=== PATIENT | female | born 1945 | race Caucasian/White ===

== ENCOUNTER 2021-01-31 17:18 | Inpatient (IN) ==
[2021-01-31 17:57] LABS: Appearance Urine Clear (Clear); Bacteria Urine Automated 2+ (Negative); Bilirubin Urine Negative (Negative); Blood Urine Negative (Negative); Cast Urine Automated 0 /lpf (0-5); Color Urine Yellow; Glucose Urine UA Negative (Negative); Ketones Urine Negative (Negative); Leukocyte Esterase Urine 2+ (Negative); Nitrite Urine Negative (Negative); Protein Urine Negative (Negative); RBC Urine Automated 0-4 /hpf (0-4); Specific Gravity Urine 1.006 (1.000-1.030); Urobilinogen Urine Negative (Negative); pH Urine 6.5 (4.5-7.5)
--- NOTE | 2021-01-31 18:05 | XRay Report ---
XR chest 1V portable HISTORY: Shortness of breath. COMPARISON: Chest CT 01/03/2021. FINDINGS: Chronic reticulonodular interstitial thickening is again noted. There are trace bilateral p leural effusions. The interstitial thickening has slightly progressed and may represent mild congesti ve change. A few bibasilar linear densities favor subsegmental atelectasis. The heart is top normal i n size. No pneumothorax. IMPRESSION: Slight progression of interstitial thickening with trace bilateral pleural effusions. This may repres ent mild congestive change. ACT 112: Negative or not required by law. Electronically signed by: Giancarlo Rico M.D. 01/31/2021 6:03 PM
[2021-01-31 18:53] LABS: Basophils # (auto) 0.02 K/uL (0-0.2); Basophils % (auto) 0.4 %; Eosinophils # (auto) 0.01 K/uL (0-0.5); Eosinophils % (auto) 0.2 %; Hemoglobin 14.7 g/dL (12.0-16.0); Immature Granulocytes # (auto) 0.02 K/uL (0.00-0.02); Immature Granulocytes % (auto) 0.4 %; Lymphocytes # (auto) 0.87 K/uL (1.2-3.4); Lymphocytes % (auto) 19.2 %; Mean Corpuscular Hemoglobin 31.1 pg (25-34); Mean Corpuscular Hgb Conc 33.4 g/dL (32-36); Mean Corpuscular Volume 93.2 fL (80-100); Mean Platelet Volume 9.8 fL (7.4-10.4); Monocytes # (auto) 0.67 K/uL (0.11-0.59); Monocytes % (auto) 14.8 %; Neutrophils # (auto) 2.94 K/uL (1.4-6.5); Platelet Count 161 K/uL (130-400); RDW Coefficient of Variation 13.5 % (11.5-14.5); RDW Standard Deviation 46.5 fL (36.4-46.3); Red Blood Count 4.72 M/uL (4.2-5.4); White Blood Count 4.53 K/uL (4.8-10.8)
[2021-01-31 19:04] LABS: Partial Thromboplastin Ratio 1.1; Partial Thromboplastin Time 29.5 Seconds (21.0-31.0); Prothrombin Time 10.2 Seconds (9.0-12.0)
[2021-01-31 19:11] LABS: Alanine Aminotransferase 43 U/L (12-78); Aspartate Aminotransferase 44 U/L (15-37); Blood Urea Nitrogen 9 mg/dl (7-18); Calcium 8.9 mg/dl (8.5-10.1); Carbon Dioxide 22 mmol/L (21-32); Chloride 109 mmol/L (98-107); Est GFR (African American) 78.2 ml/min; Est GFR (Non-African American) 67.5 ml/min; Glucose 108 mg/dl (70-99); Magnesium 2.3 mg/dl (1.8-2.4); Potassium 4.1 mmol/L (3.5-5.1); Sodium 139 mmol/L (136-145)
[2021-01-31 19:16] LABS: Albumin Globulin Ratio 0.7 (0.9-2); Alkaline Phosphatase 57 U/L (45-117); Bilirubin,Total 0.8 mg/dl (0.2-1); Globulin 4.3 gm/dl (2.5-4.0); Total Protein 7.3 gm/dl (6.4-8.2); Troponin I < 0.015 ng/ml (0-0.045)
[2021-01-31] MEDS ORDERED: ONDANSETRON INJ 2 MG/ML 2 ML VIAL IV STA (19:26)
--- NOTE | 2021-01-31 19:28 | Emergency Department Note ---
History of Present Illness General Chief complaint: Nausea Stated complaint: NAUSEA, WEAKNESS, COVID EXPOSURE Time Seen by Provider: 01/31/21 19:18 Source: patient History of Present Illness Provider complaint: Malaise, cough and weakness Onset (ago): week(s) Location: chest Severity: moderate Pain Consistency: + constant Maximum Pain Intensity: 0 Quality: + other (Generalized fatigue and a productive cough) Relieved By: + none Associated symptoms: + cough, + fever/chills (Chills no fever), + malaise and + nausea/vomiting (Nausea without vomiting); no chest pain or no shortness of breath This is a 75-year-old female who presents with flulike symptoms for the past w [place]. The patient states that on January 17 she was at a birthday constitution party and had exposure to a family member who had Covid. The patient is not vaccinated for COVID-19. She then developed symptoms about a week later including loss of taste or smell, cough and loose stools. She did not get tested for COVID-19. She presents today because she has now developed generalized malaise and fatigue and nausea. She is not vomiting. She denies fevers but states that she does have chills. She denies any chest pain, shortness of breath, abdominal pain, vomiting or urinary symptoms. Home Medications Medication Instructions Recorded Confirmed Type ascorbic acid (vitamin C) 1,000 mg 1 gm PO DAILY tab 09/14/18 01/31/21 History tablet cholecalciferol (vitamin D3) 125 5,000 units PO DAILY cap 09/14/18 01/31/21 History mcg (5,000 unit) capsule omega-3 fatty acids 1,000 mg 1,000 mg PO DAILY 10/27/18 01/31/21 History capsule (Fish Oil Concentrate) selenium 200 mcg capsule 200 mcg PO DAILY 10/27/18 01/31/21 History zinc acetate 50 mg (zinc) capsule 50 mg PO DAILY 10/27/18 01/31/21 History aspirin 500 mg tablet 500 mg PO DAILY 03/23/19 01/31/21 History albuterol sulfate 90 mcg/actuation 2 puff INHALATION Q6H PRN #8.5 g 02/14/20 01/31/21 Rx aerosol inhaler lisinopril 20 mg tablet 20 mg PO DAILY #90 tab 05/02/20 01/31/21 Rx fluticasone furoate 200 1 inh INHALATION DAILY #60 ea 01/07/21 01/31/21 Rx mcg-vilanterol 25 mcg/dose inhalation powder (Breo Ellipta) furosemide 20 mg tablet (Lasix) 20 mg PO DAILY PRN #30 tab 01/09/21 01/31/21 Rx coQ10 (ubiquinol) 200 mg capsule 200 mg PO DAILY 01/31/21 01/31/21 History cyanocobalamin (vitamin B-12) 1,000 mcg PO DAILY 01/31/21 01/31/21 History 1,000 mcg tablet (Vitamin B-12) doxycycline hyclate 100 mg capsule 100 mg PO DAILY PRN 01/31/21 01/31/21 History vitamin E 800 unit capsule 800 unit PO DAILY 01/31/21 01/31/21 History Allergies Allergy/AdvReac Type Severity Reaction Status Date / Time house dust mite Allergy Mild Sneezing Verified 01/31/21 19:09 mold Allergy Mild Sneezing Verified 01/31/21 19:09 Past Med/Surg History Medical History Abnormal CT scan, chest Chronic dyspnea HTN (hypertension) Impaired fasting glucose Lyme disease Morbid obesity due to excess calories Multiple pulmonary nodules determined by computed tomography of lung Sarcoidosis Squamous cell skin cancer, face Surgical History History of cholecystectomy History of hysterectomy History of ovarian cystectomy [place] teeth extracted Family History Mother Breast cancer Other Cancer Colon cancer Diabetes Heart disease Hypertension Denies family history of Tuberculosis Ovarian cancer Prostate cancer Myocardial infarction Emphysema, unspecified Lung disease Asthma Social History Smoking Status: Never smoker Second Hand Exposure: No; Hx Alcohol Use: No Hx Substance Use: No Preferred Language: Portuguese Visual Impairment: No Limitations Hearing Ability: Normal marital status: Single Current Living Situation: Spouse current occupational status: employed Feels Safe at Home: Yes Dental Care, Regularly: No Physical Activity Frequency: Daily Seatbelt Use: always Review of Systems See HPI for pertinent positives & negatives. and A total of 10 systems reviewed and were otherwise negative Physical Exam Vital Signs Vital Signs - 24 hr 01/31/21 17:33 01/31/21 19:00 01/31/21 19:15 Temperature 35.6 C L Temperature Source Temporal Artery Scan Pulse Rate 100 H 95 H 97 H Pulse Rate [Left] Pulse Rate from SpO2 Sensor 95 H 96 H Pulse Rhythm Pulse Rhythm [Left] Pulse Strength [Left] Respiratory Rate 20 14 24 Respiratory Effort / Characteristics Respiratory Depth Respiratory Pattern Blood Pressure 185/129 H 140/84 Blood Pressure Mean 147 102 Pulse Oximetry 91 92 Oxygen Delivery Method Room Air Room Air Oxygen Flow Rate Sepsis Recent Fever Within 48 Hours No Sepsis New/Unexplained Change in Mental Status No Sepsis Action Taken by Nursing No Action Required 01/31/21 19:22 01/31/21 19:23 01/31/21 19:30 Temperature Temperature Source Pulse Rate 98 H 101 H Pulse Rate [Left] 99 H Pulse Rate from SpO2 Sensor Pulse Rhythm Regular Pulse Rhythm [Left] Regular Pulse Strength [Left] Normal Respiratory Rate 15 15 22 Respiratory Effort / Characteristics Non-Labored Non-Labored Respiratory Depth Normal Respiratory Pattern Regular Blood Pressure Blood Pressure Mean Pulse Oximetry 94 95 94 Oxygen Delivery Method Room Air Room Air Room Air Oxygen Flow Rate Sepsis Recent Fever Within 48 Hours Sepsis New/Unexplained Change in Mental Status Sepsis Action Taken by Nursing 01/31/21 19:45 01/31/21 21:32 01/31/21 21:45 Temperature Temperature Source Pulse Rate 99 H 115 H 102 H Pulse Rate [Left] 116 H Pulse Rate from SpO2 Sensor 99 H 117 H 100 H Pulse Rhythm Pulse Rhythm [Left] Pulse Strength [Left] Respiratory Rate 24 16 25 H Respiratory Effort / Characteristics Labored Respiratory Depth Respiratory Pattern Blood Pressure Blood Pressure Mean Pulse Oximetry 93 83 L 94 Oxygen Delivery Method Room Air Room Air Nasal Cannula Oxygen Flow Rate 3 3 Sepsis Recent Fever Within 48 Hours Sepsis New/Unexplained Change in Mental Status Sepsis Action Taken by Nursing 01/31/21 22:00 01/31/21 22:15 01/31/21 23:45 Temperature Temperature Source Pulse Rate 100 H 102 H 94 H Pulse Rate [Left] Pulse Rate from SpO2 Sensor 98 H 101 H 93 H Pulse Rhythm Pulse Rhythm [Left] Pulse Strength [Left] Respiratory Rate 22 22 25 H Respiratory Effort / Characteristics Respiratory Depth Respiratory Pattern Blood Pressure 165/102 H 180/120 H Blood Pressure Mean 123 140 Pulse Oximetry 94 93 95 Oxygen Delivery Method Nasal Cannula Nasal Cannula Nasal Cannula Oxygen Flow Rate 3 3 3 Sepsis Recent Fever Within 48 Hours Sepsis New/Unexplained Change in Mental Status Sepsis Action Taken by Nursing 02/01/21 00:15 02/01/21 00:30 Temperature Temperature Source Pulse Rate 95 H 94 H Pulse Rate [Left] Pulse Rate from SpO2 Sensor Pulse Rhythm Pulse Rhythm [Left] Pulse Strength [Left] Respiratory Rate 25 H Respiratory Effort / Characteristics Respiratory Depth Respiratory Pattern Blood Pressure 180/119 H Blood Pressure Mean 139 Pulse Oximetry 91 Oxygen Delivery Method Room Air Oxygen Flow Rate Sepsis Recent Fever Within 48 Hours Sepsis New/Unexplained Change in Mental Status Sepsis Action Taken by Nursing Constitutional: Vital signs reviewed. Eyes: Pupils are equal round reactive to light. Conjunctiva are noninjected. ENT: Pharynx is clear without erythema or exudate. Mucous membranes are moist. Neck supple without meningeal signs. Respiratory: Clear to auscultation bilaterally. Breath sounds are equal bilaterally. Cardiovascular: Regular rate and rhythm. No rubs or gallops. GI: Soft, nondistended and nontender. Bowel sounds are present. Musculoskeletal: No peripheral edema. No lower extremity tenderness. Integumentary: No cyanosis. or jaundice. Neurological: The patient is awake and alert. No focal deficits. Psychiatric: Normal affect. Not anxious appearing. Course Administered Medications Discontinued Medications Acetaminophen (Acetaminophen Home Pack 500 Mg Tablet) 1 homepack PO NOW ONE Stop: 01/31/21 21:14 Last Admin: 01/31/21 21:57 Dose: Not Given Documented by: [id number] Dexamethasone Sodium Phosphate (DexamethasonePf 10 Mg/Ml Vial) 6 mg IV NOW ONE Stop: 01/31/21 22:32 Last Admin: 01/31/21 22:58 Dose: 6 mg Documented by: [id number] Ondansetron HCl (Ondansetron Inj 2 Mg/Ml 2 Ml Vial) 4 mg IV NOW STA Stop: 01/31/21 19:27 Last Admin: 01/31/21 19:43 Dose: 4 mg Documented by: [id number] Medical Decision Making Differential Diagnosis COVID-19, multifocal pneumonia, UTI, metabolic derangement, dehydration Medical Records Attestation: I reviewed the patient's medical records. I did perform a limited focused review of portions of the patient's old chart on the electronic medical record. The patient had a telephone visit with her doctor. He recommended Covid testing but she refused at the time. Home Medications Current Medication List: was personally reviewed by me Laboratory Data Attestation: I reviewed the patient's lab results. Result diagrams: 01/31/21 18:35 01/31/21 18:35 Lab Results 01/31/21 01/31/21 01/31/21 Range/Units 17:45 18:35 18:35 WBC 4.53 L (4.8-10.8) K/uL RBC 4.72 (4.2-5.4) M/uL Hgb 14.7 (12.0-16.0) g/dL Hct 44.0 (37-47) % MCV 93.2 (80-100) fL MCH 31.1 (25-34) pg MCHC 33.4 (32-36) g/dL RDW Std Deviation 46.5 H (36.4-46.3) fL RDW Coeff of [place] 13.5 (11.5-14.5) % Plt Count 161 (130-400) K/uL MPV 9.8 (7.4-10.4) fL Immature Gran % (Auto) 0.4 % Neut % (Auto) 65.0 % Lymph % (Auto) 19.2 % [place] % (Auto) 14.8 % Eos % (Auto) 0.2 % Baso % (Auto) 0.4 % Neut # (Auto) 2.94 (1.4-6.5) K/uL Lymph # (Auto) 0.87 L (1.2-3.4) K/uL [place] # (Auto) 0.67 H (0.11-0.59) K/uL Eos # (Auto) 0.01 (0-0.5) K/uL Baso # (Auto) 0.02 (0-0.2) K/uL Immature Gran # (Auto) 0.02 (0.00-0.02) K/uL PT 10.2 (9.0-12.0) Seconds INR 1.0 (0.9-1.1) APTT 29.5 (21.0-31.0) Seconds PTT Ratio 1.1 Sodium (136-145) mmol/L Potassium (3.5-5.1) mmol/L Chloride (98-107) mmol/L Carbon Dioxide (21-32) mmol/L Anion Gap (3-11) BUN (7-18) mg/dl Creatinine (0.6-1.2) mg/dl Est Cr Clr Drug Dosing Est GFR ( Amer) ml/min Est GFR (Non-Af Amer) ml/min BUN/Creatinine Ratio (10-20) Glucose (70-99) mg/dl Calcium (8.5-10.1) mg/dl Magnesium (1.8-2.4) mg/dl Total Bilirubin (0.2-1) mg/dl AST (15-37) U/L ALT (12-78) U/L Alkaline Phosphatase (45-117) U/L Troponin I (0-0.045) ng/ml Total Protein (6.4-8.2) gm/dl Albumin (3.4-5.0) gm/dl Globulin (2.5-4.0) gm/dl Albumin/Globulin Ratio (0.9-2) Urine Color Yellow Urine Appearance Clear (Clear) Urine pH 6.5 (4.5-7.5) Ur Specific [place] 1.006 (1.000-1.030) Urine Protein Negative (Negative) Urine Glucose (UA) Negative (Negative) Urine Ketones Negative (Negative) Urine Blood Negative (Negative) Urine Nitrite Negative (Negative) Urine Bilirubin Negative (Negative) Urine Urobilinogen Negative (Negative) Ur Leukocyte Esterase 2+ H (Negative) Urine WBC (Auto) 10-30 H (0-5) /hpf Urine RBC (Auto) 0-4 (0-4) /hpf U Hyaline Cast (Auto) 0 (0-5) /lpf U Epithel Cells (Auto) 10-20 H (0-5) /lpf Urine Bacteria (Auto) 2+ H (Negative) COVID-19 Eval Order SARS-CoV-2 (PCR) (Negative) 01/31/21 01/31/21 01/31/21 Range/Units 18:35 19:30 19:30 WBC (4.8-10.8) K/uL RBC (4.2-5.4) M/uL Hgb (12.0-16.0) g/dL Hct (37-47) % MCV (80-100) fL MCH (25-34) pg MCHC (32-36) g/dL RDW Std Deviation (36.4-46.3) fL RDW Coeff of [place] (11.5-14.5) % Plt Count (130-400) K/uL MPV (7.4-10.4) fL Immature Gran % (Auto) % Neut % (Auto) % Lymph % (Auto) % [place] % (Auto) % Eos % (Auto) % Baso % (Auto) % Neut # (Auto) (1.4-6.5) K/uL Lymph # (Auto) (1.2-3.4) K/uL [place] # (Auto) (0.11-0.59) K/uL Eos # (Auto) (0-0.5) K/uL Baso # (Auto) (0-0.2) K/uL Immature Gran # (Auto) (0.00-0.02) K/uL PT (9.0-12.0) Seconds INR (0.9-1.1) APTT (21.0-31.0) Seconds PTT Ratio Sodium 139 (136-145) mmol/L Potassium 4.1 (3.5-5.1) mmol/L Chloride 109 H (98-107) mmol/L Carbon Dioxide 22 (21-32) mmol/L Anion Gap 8.0 (3-11) BUN 9 (7-18) mg/dl Creatinine 0.84 (0.6-1.2) mg/dl Est Cr Clr Drug Dosing Not Reportable Est GFR ( Amer) 78.2 ml/min Est GFR (Non-Af Amer) 67.5 ml/min BUN/Creatinine Ratio 11.0 (10-20) Glucose 108 H (70-99) mg/dl Calcium 8.9 (8.5-10.1) mg/dl Magnesium 2.3 (1.8-2.4) mg/dl Total Bilirubin 0.8 (0.2-1) mg/dl AST 44 H (15-37) U/L ALT 43 (12-78) U/L Alkaline Phosphatase 57 (45-117) U/L Troponin I < 0.015 (0-0.045) ng/ml Total Protein 7.3 (6.4-8.2) gm/dl Albumin 3.0 L (3.4-5.0) gm/dl Globulin 4.3 H (2.5-4.0) gm/dl Albumin/Globulin Ratio 0.7 L (0.9-2) Urine Color Urine Appearance (Clear) Urine pH (4.5-7.5) Ur Specific [place] (1.000-1.030) Urine Protein (Negative) Urine Glucose (UA) (Negative) Urine Ketones (Negative) Urine Blood (Negative) Urine Nitrite (Negative) Urine Bilirubin (Negative) Urine Urobilinogen (Negative) Ur Leukocyte Esterase (Negative) Urine WBC (Auto) (0-5) /hpf Urine RBC (Auto) (0-4) /hpf U Hyaline Cast (Auto) (0-5) /lpf U Epithel Cells (Auto) (0-5) /lpf Urine Bacteria (Auto) (Negative) COVID-19 Eval Order Covid19 at [facility] SARS-CoV-2 (PCR) POSITIVE A* (Negative) Imaging Data Radiologist's Impression: Chest X-Ray 01/31/21 17:43 XR chest 1V portable HISTORY: Shortness of breath. COMPARISON: Chest CT 01/03/2021. FINDINGS: Chronic reticulonodular interstitial thickening is again noted. There are trace bilateral pleural effusions. The interstitial thickening has slightly progressed and may represent mild congestive change. A few bibasilar linear densities favor subsegmental atelectasis. The heart is top normal in size. No pneumothorax. IMPRESSION: Slight progression of interstitial thickening with trace bilateral pleural effusions. This may represent mild congestive change. ACT 112: Negative or not required by law. Electronically signed by: Giancarlo Rico M.D. 01/31/2021 6:03 PM ECG Data Attestation: I personally reviewed and interpreted this ECG as follows: Indication: + weakness Rate (beats per minute): 96 Rhythm: + normal sinus ECG [place]: + Left axis deviation ECG ST segments: no ST elevation ECG Findings: no PVCs MDM Narrative I did evaluate the patient as noted above. The patient is presenting with symptoms consistent with COVID-19. She had a known exposure and has not been tested yet despite her symptoms. She is presenting today with increased weaknes s. She was placed in respiratory isolation. IV access was established. I did treat her with Zofran IV. She is not short of breath and her O2 saturation is 95% on room air and so she did not require any oxygen. I did place an order for continuous cardiac monitoring. The monitor showed normal sinus rhythm at around 95 bpm. I did order and personally review the patient's 12-lead EKG as described above. She has no acute ischemic changes. I did order and personally reviewed the images of the patient's chest x-ray as described above. She does have interstitial changes consistent with viral pneumonia. I did order a urine analysis. There is some leukocyte esterase and WBCs as well as bacteria. She denies any urinary symptoms. A culture was sent and is pending. I did order and review the patient's blood work as noted in the electronic medical record. Her white count is 4.53 with lymphopenia. This is consistent with COVID-19. She is not anemic. Electrolytes are unremarkable other than a chloride of 109. Troponin is negative. Covid testing came back positive. The patient's O2 saturations have been in the low to mid 90s. There was no indication to hospitalize her and so I did prepare discharge. Prior to discharge the patient went to the bathroom and when she got back in bed her O2 saturation was 83% on room air and she became very tachypneic. She was placed on supplemental oxygen. I did treat her with Decadron 6 mg IV. She will be hospitalized for further care and evaluation. Impression & Plan Pneumonia due to 2019 novel coronavirus, Lymphopenia, Hypoxemia Discharge Plan Visit Data Chief Complaint: Nausea Stated Complaint: NAUSEA, WEAKNESS, COVID EXPOSURE ED Provider: Carlitos Hanson Discharge Problem: Pneumonia due to 2019 novel coronavirus, Lymphopenia, Hypoxemia Patient Disposition: Being Evaluated by Hospitalist Condition: Good Discharge Instructions Activity Restrictions/Additional Instructions: Suspected or Confirmed COVID-19 Instructions Thank you for visiting the Emergency Department today. Your patience is greatly appreciated. You have been screened by our medical staff who determined that you are safe to go home. We ask you follow these simple instructions to remain as healthy as possible. Please make every effort to protect those around you and to reduce transmission of any infections. Be especially careful when near or around high-risk individuals, which includes the elderly, those with weak immune systems, and anyone with preexisting medical diseases. Smoking may increase your chances of developing more severe disease if you contract Coronavirus. If you do smoke, today is the best day of your life to stop. Stay home except to get medical care. If you develop chest pain, uncontrolled fevers, confusion, difficulty breathing, vomiting, passing out, severe headaches, or worsening of your condition, call the Emergency Department for advice 24 hrs a day at [phone] or return for re-evaluation. People who are mildly to moderately ill with COVID-19 are able to isolate at home during their illness. 1. You should restrict activities outside your home, except for getting medical care. 2. Do not go to work, school, or public areas. 3. Avoid using public transportation, ride-sharing, or taxis. 4. Drink plenty of non-alcoholic fluids. 5. Eat healthy. 6. Continue current medications unless told otherwise by your providers. 7. Use Tylenol (acetaminophen), if not allergic, every six hours for control of aches and fevers. Follow the instructions on the bottle. There are several possible scenarios to your visit: At this point, with community transmission, CONSIDER YOURSELF INFECTIOUS. You should SELF-QUARANTINE FOR 14 DAYS (possibly longer if you continue to have fever). A. You were deemed high risk for COVID-19 and testing was performed. Testing can take several days or more to return. An important point to remember is that testing is not perfect and a NEGATIVE test result is not a guarantee that you are free from infection. Your risk of infection must be taken into account and conveyed to you by your provider. A POSITIVE test will trigger action by the Department of Health to track contacts and locations. You should do the right thing and contact all people you were close with and notify them so we can halt the spread. If you need to seek medical care or come in contact with people, let them know ahead of time by calling or keeping a safe distance in person (greater than 6 feet). B. You were deemed high risk for COVID-19 and testing was not performed. This may result from a lack of testing supplies or your risk was deemed so high that you very likely have contracted the disease and assumed to have contracted the illness. Other factors may be present as well. You should self-quarantine for the 14 days (possibly longer if you continue to have fever) regardless of testing. C. Your risk was very low and you were found to have another cause, Strep throat, RSV, a common cold, or Influenza. These illnesses are extremely common and can mimic the symptoms of COVID-19. In these cases, testing for COVID-19 may be deferred. HOME ISOLATION: ISOLATION IS EXTREMELY IMPORTANT TO STOP THE SPREAD OF THE DISEASE AND PREVENTING OTHERS FROM GETTING SIGNIFICANTLY ILL!!!!! The following information about Home Isolation is from the CDC Website: https://www.cdc.gov/coronavirus/2019-ncov/hcp/sahrvomb-zpdsaso-uoelsj.html PEOPLE: Separate yourself from other people and animals in your home. As much as possible, you should stay in a specific room and away from other people in your home. Also, you should use a separate bathroom, if available. 1. You should wear a face mask when you are around other people (e.g., sharing a room or vehicle) or pets and before you enter a healthcare providers office. If you are not able to wear a face mask (for example, because it causes trouble breathing), then people who live with you should not stay in the same room with you, or they should wear a face mask if they enter your room. 2. Cover your mouth and nose with a tissue when you cough or sneeze. Throw used tissues in a lined trash can. Immediately wash your hands with soap and water for at least 20 seconds or, if soap and water are not available, clean your hands with an alcohol-based hand medical records director that contains at least 60% alcohol. 3. Clean your hands often. Wash your hands often with soap and water for at least 20 seconds, especially after blowing your nose, coughing, or sneezing; going to the bathroom; and before eating or preparing food. If soap and water are not readily available, use an alcohol-based hand medical records director with at least 60% alcohol, covering all surfaces of your hands and rubbing them together until they feel dry. Soap and water are the best option if hands are visibly dirty. Avoid touching your eyes, nose, and mouth with unwashed hands. 4. Avoid sharing personal household items. You should not share dishes, drinking glasses, cups, eating utensils, towels, or bedding with other people or pets in your home. After using these items, they should be washed thoroughly with soap and water. 5. Clean all high-touch surfaces every day. High touch surfaces include counters, tabletops, doorknobs, bathroom fixtures, toilets, phones, keyboards, tablets, and bedside tables. Also, clean any surfaces that may have blood, stool, or body fluids on them. Use a household cleaning spray or wipe, according to the label instructions. Labels contain instructions for safe and effective use of the cleaning product including precautions you should take when applying the product, such as wearing gloves and making sure you have good ventilation during use of the product. ANIMALS: You should restrict contact with pets and other animals while you are sick with COVID-19, just like you would around other people. Although there have not been reports of pets or other animals becoming sick with COVID-19, it is still recommended that people sick with COVID-19 limit contact with animals until more information is known about the virus. When possible, have another member of your household care for your animals while you are sick. If you are sick with COVID-19, avoid contact with your pet, including petting, snuggling, being kissed or licked, and sharing food. If you must care for your pet or be around animals while you are sick, wash your hands before and after you interact with pets and wear a face mask. CALL AHEAD BEFORE VISITING YOUR DOCTOR: Appointments, policies, procedures, and schedules have change significantly since the outbreak of COVID-19. If you have a medical appointment, call the healthcare provider and tell them that you have or may have COVID-19. This will help the healthcare providers office take steps to keep other people from getting infected or exposed. MONITOR YOUR SYMPTOMS: Seek prompt medical attention if your illness is worsening (e.g., difficulty breathing). Before seeking care, call your healthcare provider and tell them that you have, or are being evaluated for, COVID-19. Put on a face mask before you enter the facility. These steps will help the healthcare providers office to keep other people in the office or waiting room from getting infected or exposed. Persons who are placed under active monitoring or facilitated self- monitoring should follow instructions provided by their local health department or occupational health professionals, as appropriate. When working with your local health department check their available hours. If you have a medical emergency and need to call 911, NOTIFY DISPATCH PERSONNEL AND EMS that you have, or are being evaluated for COVID-19!!! If possible, put on a face mask before emergency medical services arrive. Common Symptoms of Coronavirus disease 2019 (COVID-19): The following symptoms may appear 2-14 days after exposure. Fever Dry Cough Shortness of breath (Some patients are also experiencing muscle aches, racing heart beats, nausea, and diarrhea) DISCONTINUING HOME ISOLATION: Patients with confirmed COVID-19 should remain under home isolation precautions until the risk of secondary transmission to others is thought to be low. The decision to discontinue home isolation precautions should be made on a case-by- case basis, in consultation with healthcare providers and state and local health departments. This is an ever changing treatment and containment strategy. Remain calm, be flexible, and stay healthy! Want more information on COVID-19? Please visit the following websites. Center for Disease Control and Prevention. https://www.cdc.gov/coronavirus/2019-ncov/index.html [employer]. https://www.acep.org/by-m edical-focus/infectious-diseases/coronavirus/ Interventions: ED Discharge Assessment Last Done: 01/31/21 21:17 Forms Stand Alone Forms: My [facility], Virtual Emergency Department, Important Visit Information COVID Tier Tier I: No follow up necessary. Covid Fact Sheet / ED Discharge Instructions only Tier II: Self-Monitoring Kit, Temp 2x day/pulse ox q8 hrs. Followup call in 24 hrs. Tier III: Self-Monitoring Kit, Temp 2x day/pulse ox q4 hours, with Home Oxygen, Followup call @ 8 & 24hrs. Telehealth Followup in 48hrs ED COVID Discharge Tier: Tier II: Stable for D/C. Given a Self-Mon Kit. Call Kayli k within 24hrs Prescriptions Prescriptions: No Action albuterol sulfate 90 mcg/actuation HFA aerosol inhaler 2 puff inhalation Q6H PRN (Reason: shortness of breath or wheezing) Qty: 8.5 RF: 1 zinc acetate 50 mg (zinc) capsule 50 mg PO DAILY RF: 0 selenium 200 mcg capsule 200 mcg PO DAILY RF: 0 omega-3 fatty acids [Fish Oil Concentrate] 1,000 mg capsule 1,000 mg PO DAILY RF: 0 furosemide [Lasix] 20 mg tablet 20 mg PO DAILY PRN (Reason: edema) Qty: 30 RF: 1 ascorbic acid (vitamin C) 1,000 mg tablet 1 gm PO DAILY RF: 0 cholecalciferol (vitamin D3) 5,000 unit capsule 5,000 units PO DAILY RF: 0 lisinopril 20 mg tablet 20 mg PO DAILY Qty: 90 RF: 3 Breo Ellipta 200-25 mcg/dose blister with device 1 inh inhalation DAILY Qty: 60 RF: 3 aspirin 500 mg Tablet 500 mg PO DAILY RF: 0 cyanocobalamin (vitamin B-12) [Vitamin B-12] 1,000 mcg Tablet 1,000 mcg PO DAILY RF: 0 vitamin E 800 unit Capsule 800 unit PO DAILY RF: 0 coQ10 (ubiquinol) 200 mg Capsule 200 mg PO DAILY RF: 0 doxycycline hyclate 100 mg capsule 100 mg PO DAILY PRN (Reason: FOR LYMES DISEASE) RF: 0 Referrals Referrals: Nimo Gore MD [Primary Care Provider] -
[2021-01-31] MEDS ORDERED: ACETAMINOPHEN HOME PACK 500 MG TABLET PO ONE (21:13)
[2021-01-31] MEDS ORDERED: dexAMETHasone**PF** 10 MG/ML VIAL IV ONE (22:31)
[2021-02-01] MEDS ORDERED: ALBUTEROL HFA 8 GM INHALER INH PRN (00:37)
--- NOTE | 2021-02-01 00:40 | History & Physical Report ---
Date of Service February 01, 2021 Assessment & Plan (1) Pneumonia due to 2019 novel coronavirus: Plan: Dayana Dodd is a 75-year-old female with past medical history significant for sarcoidosis, hypertension, Lyme's disease; who presents for concerns of increased nausea, inability to tolerate food or drink due to loose stools, and recent COVID-19 exposure. Hypoxia: -Desaturations to 86% while on room air in ED -Responded to 3 L nasal cannula with subsequent ability to wean off oxygen supplementation with no further desaturations while in ED -CXR demonstrating slight progression of interstitial thickening with trace bilateral pleural effusions -No focal findings on examination consistent with heart failure -Patient utilizes Lasix 20 mg as needed for peripheral edema -Consider echocardiogram in a.m. if no continued improvement overnight COVID-19 pneumonia: -CXR demonstrating slight progression of interstitial thickening with trace bilateral pleural effusions -Admit to med/surge for monitoring secondary to COVID-19 -Oxygen as needed maintaining oxygen saturations greater than 90% -Dexamethasone 6 mg IV daily -Given prolonged course (15 days from exposure/development of symptoms) patient not a candidate for remdesivir or antibodies Hypertension: -Continue home regimen of lisinopril 20 mg daily Sarcoidosis: -Patient utilizes DuoNebs and Breo as outpatient -Continue home regimen with transition to hospital formulary while inpatient History of Lyme disease: -At home utilizes doxycycline 100 mg as needed for Lyme related symptoms -Consider retesting for Lyme if additional findings/presentation of new symptoms Diet: Regular CODE STATUS: Full code DVT prophylaxis: Lovenox (2) Sarcoidosis: (3) HTN (hypertension): (4) H/o Lyme disease: (5) Hypoxemia: History of Present Illness Primary Care Provider: Nimo Gore MD Dayana Dodd is a 75-year-old female with past medical history significant for sarcoidosis, hypertension, Lyme's disease; who presents for concerns of increased nausea, inability to tolerate food or drink due to loose stools, and recent COVID-19 exposure. Earlier this month was at a birthday libertarian and sub sequently was notified 2 days later that son was positive for COVID-19, since that time has had slow development of her symptoms. This ultimately culminated in over the last several days being unable to tolerate eating and drinking and any significant quantities, as well as continuing to feel weaker as time passed. Recognizes that this fatigue had been slowly developing over these 2 weeks. While in ED was continuing to do well, but after a short trip/walk to the bathroom she dropped her oxygen saturations to approximately 86%. Requiring nasal cannula oxygen supplementation ordered to push back up. Has no history of oxygen requirement, with only pulmonary history being her sarcoidosis. Currently denies chest pain, shortness of breath, palpitations, changes in vision, headaches, lightheadedness, dizziness, changes in strength, abdominal pain, nausea, vomiting, diarrhea. Allergies Allergy/AdvReac Type Severity Reaction Status Date / Time house dust mite Allergy Mild Sneezing Verified 01/31/21 19:09 mold Allergy Mild Sneezing Verified 01/31/21 19:09 Home Medications Medication Instructions Recorded Confirmed Type ascorbic acid (vitamin C) 1,000 mg 1 gm PO DAILY tab 09/14/18 01/31/21 History tablet cholecalciferol (vitamin D3) 125 5,000 units PO DAILY cap 09/14/18 01/31/21 History mcg (5,000 unit) capsule omega-3 fatty acids 1,000 mg 1,000 mg PO DAILY 10/27/18 01/31/21 History capsule (Fish Oil Concentrate) selenium 200 mcg capsule 200 mcg PO DAILY 10/27/18 01/31/21 History zinc acetate 50 mg (zinc) capsule 50 mg PO DAILY 10/27/18 01/31/21 History aspirin 500 mg tablet 500 mg PO DAILY 03/23/19 01/31/21 History albuterol sulfate 90 mcg/actuation 2 puff INHALATION Q6H PRN #8.5 g 02/14/20 01/31/21 Rx aerosol inhaler lisinopril 20 mg tablet 20 mg PO DAILY #90 tab 05/02/20 01/31/21 Rx fluticasone furoate 200 1 inh INHALATION DAILY #60 ea 01/07/21 01/31/21 Rx mcg-vilanterol 25 mcg/dose inhalation powder (Breo Ellipta) furosemide 20 mg tablet (Lasix) 20 mg PO DAILY PRN #30 tab 01/09/21 01/31/21 Rx coQ10 (ubiquinol) 200 mg capsule 200 mg PO DAILY 01/31/21 01/31/21 History cyanocobalamin (vitamin B-12) 1,000 mcg PO DAILY 01/31/21 01/31/21 History 1,000 mcg tablet (Vitamin B-12) doxycycline hyclate 100 mg capsule 100 mg PO DAILY PRN 01/31/21 01/31/21 History vitamin E 800 unit capsule 800 unit PO DAILY 01/31/21 01/31/21 History Past Med/Surg History Medical History Abnormal CT scan, chest Chronic dyspnea HTN (hypertension) Impaired fasting glucose Lyme disease Morbid obesity due to excess calories Multiple pulmonary nodules determined by computed tomography of lung Sarcoidosis Squamous cell skin cancer, face Surgical History History of cholecystectomy History of hysterectomy History of ovarian cystectomy [place] teeth extracted Family History Mother Breast cancer Other Cancer Colon cancer Diabetes Heart disease Hypertension Denies family history of Tuberculosis Ovarian cancer Prostate cancer Myocardial infarction Emphysema, unspecified Lung disease Asthma Social History Smoking Status: Never smoker Second Hand Exposure: No; Hx Alcohol Use: No Hx Substance Use: No Preferred Language: [place] Communication Ability: Effective Visual Impairment: No Limitations Hearing Ability: Normal Circular Sawyer Stone Required: No Beliefs That Will Affect Care: None marital status: ivorced Current Living Situation: Alone current occupational status: employed How many Children do You have: 1 Feels Safe at Home: Yes Safety Concerns: Feels Safe At This Time Dental Care, Regularly: No Physical Activity Frequency: Daily Seatbelt Use: always Assistive Devices: None Review of Systems Review of Systems: All systems reviewed & are unremarkable except as noted in HPI & below Physical Exam Constitutional: WD/WN, vitals as above Eyes: PERRL, conjunctivae normal, anicteric sclerae Respiratory: normal respiratory effort, lungs clear to auscultation Auscultation: + wheezes (fine whole field); no crackles, no rales and no rhonchi Cardiovascular: Rate/Rhythm: regular rate and regular rhythm Heart Sounds: no gallop, no murmur and no cardiac rub Vessels: normal peripheral pulses; no JVD Extremities: no edema Gastrointestinal (Abdomen): Inspection/Auscultation: normal bowel sounds; abdomen not distended Percussion/Palpation: abdomen soft; abdomen nontender and no guarding Musculoskeletal: no cyanosis or clubbing, extremities motor strength 5/5 Skin: no rashes, warm and dry Neurologic: PERRL, EOMI, accommodation nl, no face palsy, no dysarthria CN's II-XI intact bilaterally and moves all extremities Psychiatric: Orientation: alert and oriented x 3 Results & Data Results & Data ([facility]) Vital Signs (Past 12 Hours) Vital Signs Temp Pulse Pulse Resp BP Pulse Ox 02/01/21 00:30 94 H 25 H 180/119 H 91 02/01/21 00:15 95 H 01/31/21 23:45 94 H 25 H 180/120 H 95 01/31/21 22:15 102 H 22 165/102 H 93 01/31/21 22:00 100 H 22 94 01/31/21 21:45 102 H 25 H 94 01/31/21 21:32 115 H 116 H 16 83 L 01/31/21 19:45 99 H 24 93 01/31/21 19:30 101 H 22 94 01/31/21 19:23 98 H 99 H 15 95 01/31/21 19:22 15 94 01/31/21 19:15 97 H 24 92 01/31/21 19:00 95 H 14 140/84 91 01/31/21 17:33 35.6 C L 100 H 20 185/129 H Laboratory Results 01/31/21 01/31/21 01/31/21 Range/Units 19:30 19:30 18:35 WBC (4.8-10.8) K/uL RBC (4.2-5.4) M/uL Hgb (12.0-16.0) g/dL Hct (37-47) % MCV (80-100) fL MCH (25-34) pg MCHC (32-36) g/dL RDW Std Deviation (36.4-46.3) fL RDW Coeff of Ranulfo (11.5-14.5) % Plt Count (130-400) K/uL MPV (7.4-10.4) fL Immature Gran % (Auto) % Neut % (Auto) % Lymph % (Auto) % [place] % (Auto) % Eos % (Auto) % Baso % (Auto) % Neut # (Auto) (1.4-6.5) K/uL Lymph # (Auto) (1.2-3.4) K/uL [place] # (Auto) (0.11-0.59) K/uL Eos # (Auto) (0-0.5) K/uL Baso # (Auto) (0-0.2) K/uL Immature Gran # (Auto) (0.00-0.02) K/uL PT (9.0-12.0) Seconds INR (0.9-1.1) APTT (21.0-31.0) Seconds PTT Ratio Sodium 139 (136-145) mmol/L Potassium 4.1 (3.5-5.1) mmol/L Chloride 109 H (98-107) mmol/L Carbon Dioxide 22 (21-32) mmol/L Anion Gap 8.0 (3-11) BUN 9 (7-18) mg/dl Creatinine 0.84 (0.6-1.2) mg/dl Est Cr Clr Drug Dosing Not Reportable Est GFR ( Amer) 78.2 ml/min Est GFR (Non-Af Amer) 67.5 ml/min BUN/Creatinine Ratio 11.0 (10-20) Glucose 108 H (70-99) mg/dl Calcium 8.9 (8.5-10.1) mg/dl Magnesium 2.3 (1.8-2.4) mg/dl Total Bilirubin 0.8 (0.2-1) mg/dl AST 44 H (15-37) U/L ALT 43 (12-78) U/L Alkaline Phosphatase 57 (45-117) U/L Troponin I < 0.015 (0-0.045) ng/ml Total Protein 7.3 (6.4-8.2) gm/dl Albumin 3.0 L (3.4-5.0) gm/dl Globulin 4.3 H (2.5-4.0) gm/dl Albumin/Globulin Ratio 0.7 L (0.9-2) Urine Color Urine Appearance (Clear) Urine pH (4.5-7.5) Ur Specific [place] (1.000-1.030) Urine Protein (Negative) Urine Glucose (UA) (Negative) Urine Ketones (Negative) Urine Blood (Negative) Urine Nitrite (Negative) Urine Bilirubin (Negative) Urine Urobilinogen (Negative) Ur Leukocyte Esterase (Negative) Urine WBC (Auto) (0-5) /hpf Urine RBC (Auto) (0-4) /hpf U Hyaline Cast (Auto) (0-5) /lpf U Epithel Cells (Auto) (0-5) /lpf Urine Bacteria (Auto) (Negative) COVID-19 Eval Order Covid19 at [facility] SARS-CoV-2 (PCR) POSITIVE A* (Negative) 01/31/21 01/31/21 01/31/21 Range/Units 18:35 18:35 17:45 WBC 4.53 L (4.8-10.8) K/uL RBC 4.72 (4.2-5.4) M/uL Hgb 14.7 (12.0-16.0) g/dL Hct 44.0 (37-47) % MCV 93.2 (80-100) fL MCH 31.1 (25-34) pg MCHC 33.4 (32-36) g/dL RDW Std Deviation 46.5 H (36.4-46.3) fL RDW Coeff of Ranulfo 13.5 (11.5-14.5) % Plt Count 161 (130-400) K/uL MPV 9.8 (7.4-10.4) fL Immature Gran % (Auto) 0.4 % Neut % (Auto) 65.0 % Lymph % (Auto) 19.2 % [place] % (Auto) 14.8 % Eos % (Auto) 0.2 % Baso % (Auto) 0.4 % Neut # (Auto) 2.94 (1.4-6.5) K/uL Lymph # (Auto) 0.87 L (1.2-3.4) K/uL [place] # (Auto) 0.67 H (0.11-0.59) K/uL Eos # (Auto) 0.01 (0-0.5) K/uL Baso # (Auto) 0.02 (0-0.2) K/uL Immature Gran # (Auto) 0.02 (0.00-0.02) K/uL PT 10.2 (9.0-12.0) Seconds INR 1.0 (0.9-1.1) APTT 29.5 (21.0-31.0) Seconds PTT Ratio 1.1 Sodium (136-145) mmol/L Potassium (3.5-5.1) mmol/L Chloride (98-107) mmol/L Carbon Dioxide (21-32) mmol/L Anion Gap (3-11) BUN (7-18) mg/dl Creatinine (0.6-1.2) mg/dl Est Cr Clr Drug Dosing Est GFR ( Amer) ml/min Est GFR (Non-Af Amer) ml/min BUN/Creatinine Ratio (10-20) Glucose (70-99) mg/dl Calcium (8.5-10.1) mg/dl Magnesium (1.8-2.4) mg/dl Total Bilirubin (0.2-1) mg/dl AST (15-37) U/L ALT (12-78) U/L Alkaline Phosphatase (45-117) U/L Troponin I (0-0.045) ng/ml Total Protein (6.4-8.2) gm/dl Albumin (3.4-5.0) gm/dl Globulin (2.5-4.0) gm/dl Albumin/Globulin Ratio (0.9-2) Urine Color Yellow Urine Appearance Clear (Clear) Urine pH 6.5 (4.5-7.5) Ur Specific [place] 1.006 (1.000-1.030) Urine Protein Negative (Negative) Urine Glucose (UA) Negative (Negative) Urine Ketones Negative (Negative) Urine Blood Negative (Negative) Urine Nitrite Negative (Negative) Urine Bilirubin Negative (Negative) Urine Urobilinogen Negative (Negative) Ur Leukocyte Esterase 2+ H (Negative) Urine WBC (Auto) 10-30 H (0-5) /hpf Urine RBC (Auto) 0-4 (0-4) /hpf U Hyaline Cast (Auto) 0 (0-5) /lpf U Epithel Cells (Auto) 10-20 H (0-5) /lpf Urine Bacteria (Auto) 2+ H (Negative) COVID-19 Eval Order SARS-CoV-2 (PCR) (Negative) Medications Administered Home Medication List Medication Instructions Recorded ascorbic acid (vitamin C) 1,000 mg 1 gm PO DAILY tab 09/14/18 tablet cholecalciferol (vitamin D3) 125 5,000 units PO DAILY cap 09/14/18 mcg (5,000 unit) capsule omega-3 fatty acids 1,000 mg 1,000 mg PO DAILY 10/27/18 capsule (Fish Oil Concentrate) selenium 200 mcg capsule 200 mcg PO DAILY 10/27/18 zinc acetate 50 mg (zinc) capsule 50 mg PO DAILY 10/27/18 aspirin 500 mg tablet 500 mg PO DAILY 03/23/19 albuterol sulfate 90 mcg/actuation 2 puff INHALATION Q6H PRN #8.5 g 02/14/20 aerosol inhaler lisinopril 20 mg tablet 20 mg PO DAILY #90 tab 05/02/20 fluticasone furoate 200 1 inh INHALATION DAILY #60 ea 01/07/21 mcg-vilanterol 25 mcg/dose inhalation powder (Breo Ellipta) furosemide 20 mg tablet (Lasix) 20 mg PO DAILY PRN #30 tab 01/09/21 coQ10 (ubiquinol) 200 mg capsule 200 mg PO DAILY 01/31/21 cyanocobalamin (vitamin B-12) 1,000 mcg PO DAILY 01/31/21 1,000 mcg tablet (Vitamin B-12) doxycycline hyclate 100 mg capsule 100 mg PO DAILY PRN 01/31/21 vitamin E 800 unit capsule 800 unit PO DAILY 01/31/21 Supervising Physician Co-Signing Physician Notes Attending addendum: I have physically seen this patient, have supervised the medical residents activities, and agree with the H&P unless as otherwise noted. Assessment and Plan: COVID-19 pneumonia with hypoxia- Dexamethasone 6 mg IV every morning Did not qualify for remdesivir due to 15-day prodrome Azithromycin 500 mg IV daily Vitamin D 1000 international units p.o. daily Zinc sulfate 25 mg p.o. daily Duonebs every 4 hours while awake and every 2 hours when necessary. Nasal cannula oxygen titrate to keep pulse ox around 92 to 94% Sarcoidosis- May be contributing factor DuoNebs and dexamethasone IV as noted above Remaining orders and notations as noted Resident Activity Tracking Resident Involvement: Resident Care Provided Care Provided: Adult Hospital Medicine
[2021-02-01] MEDS ORDERED: MAGNESIUM HYDROXIDE SUSP 30 ML UDC PO PRN (01:43)
[2021-02-01] MEDS ORDERED: POLYETHYLENE (MIRALAX) 17 GM PACK PO PRN (01:43)
[2021-02-01] MEDS ORDERED: ONDANSETRON INJ 2 MG/ML 2 ML VIAL IV PRN (01:43)
[2021-02-01] MEDS ORDERED: ALUMINUM/MAGNESIUM SUSP 30 ML UDC PO PRN (01:43)
[2021-02-01] MEDS ORDERED: ACETAMINOPHEN 325 MG TAB PO PRN (01:43)
[2021-02-01] MEDS ORDERED: FUROSEMIDE 20 MG TAB PO PRN (01:43)
[2021-02-01] MEDS: ENOXAPARIN INJ 40 MG/0.4 ML SYR SQ SCH ×2 (06:06→18:27)
[2021-02-01] MEDS: FLUTICASONE/VILANTEROL 200/25MCG 14 PUFFS/INHALER INH SCH (08:18)
[2021-02-01] MEDS: dexAMETHasone 6 MG in SYRINGE 0 ML IV SCH (08:18)
[2021-02-01] MEDS: lisinopril 20 MG TAB PO SCH (08:19)
--- NOTE | 2021-02-01 09:14 | Hospitalist Progress Note ---
Date of Service February 01, 2021 Assessment & Plan (1) Pneumonia due to 2019 novel coronavirus: Plan: Dayana Dodd is a 75-year-old female with past medical history significant for sarcoidosis, hypertension, Lyme's disease; who presents for concerns of increased nausea, inability to tolerate food or drink due to loose stools, and recent COVID-19 exposure. Hypoxia: acute respiratory failure with hypoxia secondary to covid pneumonia -Desaturations to 86% while on room air in ED -Responded to 3 L nasal cannula with subsequent ability to wean off oxygen supplementation with no further desaturations while in ED -CXR demonstrating slight progression of interstitial thickening with trace bilateral pleural effusions - COVID-19 pneumonia: -CXR demonstrating slight progression of interstitial thickening with trace bilateral pleural effusions -airborne isolation -Oxygen to maintian oxygen saturations greater than 90% -Dexamethasone 6 mg IV daily -Given prolonged course (15 days from exposure/development of symptoms) patient not a candidate for remdesivir Hypertension: -Continue home regimen of lisinopril 20 mg daily Sarcoidosis: -Patient utilizes DuoNebs and Breo as outpatient -Continue home regimen with transition to hospital formulary while inpatient History of Lyme disease: -At home utilizes doxycycline 100 mg as needed for Lyme related symptoms -Consider retesting for Lyme if additional findings/presentation of new symptoms Diet: Regular CODE STATUS: Full code DVT prophylaxis: Lovenox (2) Sarcoidosis: (3) HTN (hypertension): (4) H/o Lyme disease: (5) Hypoxemia: Admission and Anticipated Discharge Date Admission Date: February 01, 2021 Subjective Patient still with mild dyspneawith exertion no other physical complaints or problems. Does feel she knows she is exposed to Covid around a family member who tested positive from a tenriism function Review of Systems Review of Systems: Moderate distress and fatigue no headache, no visual changes no speech or swallowing issues no chest pain, pressure or palpitations Exertional shortness of breath, nonproductive cough no wheezes no abdominal pain, nausea or vomiting, diarrhea or constipation no dysuria, hematuria or frequency no focal joint pain or swelling no back pain, CVA tenderness or radicular pain no bruising, bleeding or rashes no focal signs of weakness or numbness or altered sensation no complaints of anxiety or depression.. Physical Exam Physical Exam: The patient appeared well nourished and normally developed. Vital signs as documented. Head exam is normocephalic atraumatic Neck is without JVD, thyromegaly, or carotid bruits. Lungs are clear to auscultation, no focal loss of breath sounds Cardiac exam, Rhythm is regular.. No murmurs, rubs or gallops. Abdominal exam reveals normal bowel sounds, soft non tender, no masses Extremities are nonedematous and both pedal pulses are present Neurologic exam is alert and oriented, no focal loss of strength or sensation Skin is without bruises or rashes Psychologically is without concerns for anxiety or depression Results & Data Results & Data ([facility]) Vital Signs (Past 12 Hours) Vital Signs Temp Pulse Pulse Resp BP BP BP 02/01/21 08:17 75 149/95 H 02/01/21 06:08 97.5 F L 86 18 154/100 H 02/01/21 02:24 157/100 H 02/01/21 01:43 99.0 F 98 H 20 167/114 H 02/01/21 01:24 02/01/21 01:15 98 H 174/109 H 02/01/21 00:45 98 H 02/01/21 00:30 94 H 25 H 180/119 H 02/01/21 00:15 95 H 01/31/21 23:45 94 H 25 H 180/120 H 01/31/21 22:15 102 H 22 165/102 H 01/31/21 22:00 100 H 22 01/31/21 21:45 102 H 25 H 01/31/21 21:32 115 H 116 H 16 Pulse Ox 02/01/21 08:17 02/01/21 06:08 92 02/01/21 02:24 02/01/21 01:43 93 02/01/21 01:24 94 02/01/21 01:15 86 L 02/01/21 00:45 90 02/01/21 00:30 91 02/01/21 00:15 01/31/21 23:45 95 01/31/21 22:15 93 01/31/21 22:00 94 01/31/21 21:45 94 01/31/21 21:32 83 L PG Care Time/CCT Total # of Minutes Spent Total Time Spent with Patient: Total time spent is greater than 50% in coordination of care (as documented) at patient's floor/unit and/or counseling patient: Coding Level of Care Code 48983 Subseq Hosp Care Lvl 2 Diagnoses Pneumonia due to 2019 novel coronavirus U07.1; J12.82 Sarcoidosis D86.9 HTN (hypertension) I10 H/o Lyme disease Z86.19 Hypoxemia R09.02
[2021-02-01 09:35] LABS: Basophils # (auto) 0.01 K/uL (0-0.2); Basophils % (auto) 0.3 %; Hematocrit (blood only) 42.5 % (37-47); Immature Granulocytes # (auto) 0.02 K/uL (0.00-0.02); Immature Granulocytes % (auto) 0.7 %; Lymphocytes # (auto) 0.25 K/uL (1.2-3.4); Lymphocytes % (auto) 8.5 %; Mean Corpuscular Hemoglobin 30.9 pg (25-34); Mean Corpuscular Hgb Conc 32.9 g/dL (32-36); Mean Corpuscular Volume 93.8 fL (80-100); Mean Platelet Volume 10.2 fL (7.4-10.4); Monocytes # (auto) 0.35 K/uL (0.11-0.59); Monocytes % (auto) 11.9 %; Neutrophils # (auto) 2.31 K/uL (1.4-6.5); Neutrophils % (auto) 78.6 %; Platelet Count 164 K/uL (130-400); RDW Coefficient of Variation 13.6 % (11.5-14.5); Red Blood Count 4.53 M/uL (4.2-5.4); White Blood Count 2.94 K/uL (4.8-10.8)
[2021-02-01 09:55] LABS: BUN Creatinine Ratio 13.7 (10-20); Calcium 9.1 mg/dl (8.5-10.1); Creatinine Clr Calc Pharmacy 81.6 ml/min; Est GFR (African American) 94.3 ml/min; Est GFR (Non-African American) 81.3 ml/min; Potassium 5.1 mmol/L (3.5-5.1)
--- NOTE | 2021-02-01 10:28 | Electrocardiogram Report ---
Test Reason : Blood Pressure : / mmHG Vent. Rate : 096 BPM Atrial Rate : 096 BPM P-R Int : 196 ms QRS Dur : 090 ms QT Int : 354 ms P-R-T Axes : 039 -39 017 degrees QTc Int : 447 ms Normal sinus rhythm Left anterior fascicular block Abnormal ECG When compared with ECG of 23-MAR-2019 15:01, No significant change was found Confirmed by Vishal Juarez ([id number]) on 02/01/2021 10:28:26 AM Referred By: REFERRED SELF Confirmed By:Vishal Juarez
--- NOTE | 2021-02-01 20:14 | Billing Data ---
Date of Service February 01, 2021 Coding Level of Care Code 01144 Initial Inpt Care Lvl 3
[2021-02-02] MEDS: ENOXAPARIN INJ 40 MG/0.4 ML SYR SQ SCH ×2 (06:24→18:38)
[2021-02-02] MEDS: lisinopril 20 MG TAB PO SCH (08:16)
[2021-02-02] MEDS: FLUTICASONE/VILANTEROL 200/25MCG 14 PUFFS/INHALER INH SCH (08:17)
[2021-02-02] MEDS: dexAMETHasone 6 MG in SYRINGE 0 ML IV SCH (08:18)
--- NOTE | 2021-02-02 11:06 | XRay Report ---
XR chest 1V portable CLINICAL HISTORY: eval covid COMPARISON STUDY: Chest CT January 03, 2021. Chest radiograph January 31, 2021. FINDINGS: Cardiac mediastinal silhouette is stable. Calcified mediastinal and bilateral hilar lymph n odes are noted as well as calcified granulomas within the lungs. There is no pneumothorax. There are trace bilateral pleural effusions. Multifocal bilateral airspace opacities have progressed. IMPRESSION: Progression of multifocal bilateral airspace opacities which favor an infectious process superimposed upon a chronic granulomatous process. ACT 112: Negative or not required by law. Electronically signed by: Shen Gore M.D. 02/02/2021 11:05 AM
[2021-02-02] MEDS ORDERED: FUROSEMIDE 20 MG in SYRINGE 0 ML IV ONE (11:15)
--- NOTE | 2021-02-02 14:18 | Hospitalist Progress Note ---
Date of Service February 02, 2021 Assessment & Plan (1) Pneumonia due to 2019 novel coronavirus: Plan: Dayana Dodd is a 75-year-old female with past medical history significant for sarcoidosis, hypertension, Lyme's disease; who presents for concerns of increased nausea, inability to tolerate food or drink due to loose stools, and recent COVID-19 exposure. Hypoxia: -Desaturations to 86% while on room air in ED now requiring significant oxygen with ambulation. -CXR repeat shows progression of multifocal bilateral airspace opacities COVID-19 pneumonia: -CXR demonstrating slight progression of interstitial thickening with trace bilateral pleural effusions -Admit to med/surge for monitoring secondary to COVID-19 -Oxygen as needed maintaining oxygen saturations greater than 90% -We'll try dose of Solu-Medrol overnight to see if improves her oxygen require ment -Given prolonged course (15 days from exposure/development of symptoms) patient not a candidate for remdesivir or baricitinib Hypertension: -Continue home regimen of lisinopril 20 mg daily Sarcoidosis: -Patient utilizes DuoNebs and Breo as outpatient -Continue home regimen with transition to hospital formulary while inpatient History of Lyme disease: -At home utilizes doxycycline 100 mg as needed for Lyme related symptoms -Consider retesting for Lyme if additional findings/presentation of new symptoms Diet: Regular CODE STATUS: Full code DVT prophylaxis: Lovenox (2) Sarcoidosis: (3) HTN (hypertension): (4) H/o Lyme disease: (5) Hypoxemia: (6) Bacteria in urine: Plan: Patient is asymptomatic bacteria in urine will not treat unless patient becomes symptomatic this is a pansensitive E. coli Admission and Anticipated Discharge Date Admission Date: February 01, 2021 Subjective Patient had a two-step oxygen requirement test and with ambulation she had tachycardia to 150 and required 6 L nasal cannula. Certainly her oxygen need is impacted by her underlying COPD however her last pulmonary function test which was within the last year only had around 79% predicted so wasn't severe COPD. We'll continue supportive care for her Covid will increase steroids a bit to try to cover also underlying COPD give her some diuresis. Chest x-ray did not show any improvement or worsening Review of Systems Review of Systems: Moderate distress and fatigue no headache, no visual changes no speech or swallowing issues no chest pain, pressure or palpitations Exertional shortness of breath, nonproductive cough no wheezes no abdominal pain, nausea or vomiting, diarrhea or constipation no dysuria, hematuria or frequency no focal joint pain or swelling no back pain, CVA tenderness or radicular pain no bruising, bleeding or rashes no focal signs of weakness or numbness or altered sensation no complaints of anxiety or depression.. Physical Exam Physical Exam: The patient appeared well nourished and normally developed. Vital signs as documented. Head exam is normocephalic atraumatic Neck is without JVD, thyromegaly, or carotid bruits. Lungs are clear to auscultation, no focal loss of breath sounds Cardiac exam, Rhythm is regular.. No murmurs, rubs or gallops. Abdominal exam reveals normal bowel sounds, soft non tender, no masses Extremities are nonedematous and both pedal pulses are present Neurologic exam is alert and oriented, no focal loss of strength or sensation Skin is without bruises or rashes Psychologically is without concerns for anxiety or depression Results & Data Results & Data ([facility]) Vital Signs (Past 12 Hours) Vital Signs Temp Pulse Pulse Pulse Pulse Pulse Pulse 02/02/21 08:20 91 H 99 H 109 H 113 H 150 H 109 H 02/02/21 08:12 98.2 F Pulse Pulse Pulse Pulse Resp Resp Resp 02/02/21 08:20 99 H 77 105 H 22 22 02/02/21 08:12 75 16 Resp Resp Resp Resp Resp Resp Resp 02/02/21 08:20 22 22 22 22 22 22 22 02/02/21 08:12 BP Pulse Ox Pulse Ox Pulse Ox Pulse Ox Pulse Ox Pulse Ox 02/02/21 08:20 90 85 L 84 L 85 L 81 L 02/02/21 08:12 163/95 H 93 Pulse Ox Pulse Ox Pulse Ox Pulse Ox 02/02/21 08:20 90 86 L 95 87 L 02/02/21 08:12 PG Care Time/CCT Total # of Minutes Spent Total Time Spent with Patient: Total time spent is greater than 50% in coordination of care (as documented) at patient's floor/unit and/or counseling patient: Coding Level of Care Code 96101 Subseq Hosp Care Lvl 2 Diagnoses Pneumonia due to 2019 novel coronavirus U07.1; J12.82 Sarcoidosis D86.9 HTN (hypertension) I10 H/o Lyme disease Z86.19 Hypoxemia R09.02 Bacteria in urine R82.71
[2021-02-02] MEDS ORDERED: MAGNESIUM SULFATE / D5W 1 GM/100 ML BAG IV ONE (15:44)
[2021-02-02] MEDS: methylPREDNISolone 40 MG in SYRINGE 0 ML IV SCH ×2 (16:03→21:46)
[2021-02-02] MEDS: MAGNESIUM OXIDE 400 MG TAB PO SCH (21:46)
[2021-02-03] MEDS: ENOXAPARIN INJ 40 MG/0.4 ML SYR SQ SCH ×2 (06:34→18:34)
[2021-02-03] MEDS: methylPREDNISolone 40 MG in SYRINGE 0 ML IV SCH ×3 (06:34→21:05)
[2021-02-03] MEDS: MAGNESIUM OXIDE 400 MG TAB PO SCH ×2 (08:24→21:05)
[2021-02-03] MEDS: lisinopril 20 MG TAB PO SCH (08:24)
[2021-02-03] MEDS: FLUTICASONE/VILANTEROL 200/25MCG 14 PUFFS/INHALER INH SCH (08:24)
[2021-02-03] MEDS: DOXYCYCLINE HYCLATE 100 MG CAP PO SCH ×2 (14:40→21:05)
--- NOTE | 2021-02-03 19:03 | Hospitalist Progress Note ---
Date of Service February 03, 2021 Assessment & Plan (1) Pneumonia due to 2019 novel coronavirus: Plan: Dayana Dodd is a 75-year-old female with past medical history significant for sarcoidosis, hypertension, Lyme's disease; who presents for concerns of increased nausea, inability to tolerate food or drink due to loose stools, and recent COVID-19 exposure. Hypoxia: -Desaturations to 86% while on room air in ED now requiring significant oxygen with ambulation. Patient had a two-step oxygen requirement test and with ambulation on 02/02 and she had tachycardia to 150 and required 6 L nasal cannula. On 02/03 to the nurse walked her to the bathroom with a similar result. -CXR repeat shows progression of multifocal bilateral airspace opacities COVID-19 pneumonia: Patient states coughing up dark brown mucus on the morning of 02/03 we will escalate her typical doxycycline to twice daily for treatment of bronchitis. No infiltrates were seen on chest x-ray from 02/02 -CXR demonstrating slight progression of interstitial thickening with trace bilateral pleural effusions -Admit to med/surge for monitoring secondary to COVID-19 -Oxygen as needed maintaining oxygen saturations greater than 90% -Continue dexamethasone steroids for the patient is significant hypoxia -Given prolonged course (15 days from exposure/development of symptoms) patient not a candidate for remdesivir or baricitinib Hypertension: -Continue home regimen of lisinopril 20 mg daily Sarcoidosis: -Patient utilizes DuoNebs and Breo as outpatient -Continue home regimen with transition to hospital formulary while inpatient History of Lyme disease: -At home utilizes doxycycline 100 mg as needed for Lyme related symptoms -Consider retesting for Lyme if additional findings/presentation of new symptoms Diet: Regular CODE STATUS: Full code DVT prophylaxis: Lovenox (2) Sarcoidosis: (3) HTN (hypertension): (4) H/o Lyme disease: (5) Hypoxemia: (6) Bacteria in urine: Plan: Patient is asymptomatic bacteria in urine will not treat unless patient becomes symptomatic this is a pansensitive E. coli Admission and Anticipated Discharge Date Admission Date: February 01, 2021 Subjective Patient had a two-step oxygen requirement test and with ambulation on 02/02 and she had tachycardia to 150 and required 6 L nasal cannula. On 02/03 to the nurse walked her to the bathroom with a similar result. Certainly her oxygen need is impacted by her underlying COPD however her last pulmonary function test which was within the last year only had around 79% predicted so wasn't severe COPD. We'll continue supportive care for her Covid will increase steroids a bit to try to cover also underlying COPD give her some diuresis. Chest x-ray did not show any improvement or worsening on 02/02 Review of Systems Review of Systems: Moderate distress and fatigue no headache, no visual changes no speech or swallowing issues no chest pain, pressure or palpitations Exertional shortness of breath, nonproductive cough no wheezes no abdominal pain, nausea or vomiting, diarrhea or constipation no dysuria, hematuria or frequency no focal joint pain or swelling no back pain, CVA tenderness or radicular pain no bruising, bleeding or rashes no focal signs of weakness or numbness or altered sensation no complaints of anxiety or depression.. Physical Exam Physical Exam: The patient appeared well nourished and normally developed. Vital signs as documented. Head exam is normocephalic atraumatic Neck is without JVD, thyromegaly, or carotid bruits. Lungs are clear to auscultation, no focal loss of breath sounds Cardiac exam, Rhythm is regular.. No murmurs, rubs or gallops. Abdominal exam reveals normal bowel sounds, soft non tender, no masses Extremities are nonedematous and both pedal pulses are present Neurologic exam is alert and oriented, no focal loss of strength or sensation Skin is without bruises or rashes Psychologically is without concerns for anxiety or depression Results & Data Results & Data ([facility]) Vital Signs (Past 12 Hours) Vital Signs Temp Pulse Resp BP BP Pulse Ox 02/03/21 14:46 98.6 F 78 18 162/95 H 92 02/03/21 08:11 98.2 F 70 18 161/97 H 93 PG Care Time/CCT Total # of Minutes Spent Total Time Spent with Patient: Total time spent is greater than 50% in coordination of care (as documented) at patient's floor/unit and/or counseling patient: Coding Level of Care Code 03474 Subseq Hosp Care Lvl 2 Diagnoses Pneumonia due to 2019 novel coronavirus U07.1; J12.82 Sarcoidosis D86.9 HTN (hypertension) I10 H/o Lyme disease Z86.19 Hypoxemia R09.02 Bacteria in urine R82.71
[2021-02-04] MEDS: methylPREDNISolone 40 MG in SYRINGE 0 ML IV SCH (06:04)
[2021-02-04] MEDS: ENOXAPARIN INJ 40 MG/0.4 ML SYR SQ SCH ×2 (06:04→18:25)
[2021-02-04 06:21] LABS: Hematocrit (blood only) 43.5 % (37-47); Mean Corpuscular Hgb Conc 32.2 g/dL (32-36); Mean Corpuscular Volume 96.2 fL (80-100); Mean Platelet Volume 10.2 fL (7.4-10.4); Platelet Count 228 K/uL (130-400); RDW Coefficient of Variation 13.2 % (11.5-14.5); RDW Standard Deviation 46.3 fL (36.4-46.3); Red Blood Count 4.52 M/uL (4.2-5.4); White Blood Count 9.48 K/uL (4.8-10.8)
[2021-02-04 07:00] LABS: Creatinine Clr Calc Pharmacy 63.9 ml/min; Est GFR (African American) 70.1 ml/min; Est GFR (Non-African American) 60.5 ml/min
[2021-02-04] MEDS: lisinopril 20 MG TAB PO SCH (07:50)
[2021-02-04] MEDS: FLUTICASONE/VILANTEROL 200/25MCG 14 PUFFS/INHALER INH SCH (08:41)
[2021-02-04] MEDS: DOXYCYCLINE HYCLATE 100 MG CAP PO SCH ×2 (08:41→15:42)
[2021-02-04] MEDS: MAGNESIUM OXIDE 400 MG TAB PO SCH ×2 (08:41→20:23)
--- NOTE | 2021-02-04 13:51 | Hospitalist Progress Note ---
Date of Service February 04, 2021 Assessment & Plan (1) Pneumonia due to 2019 novel coronavirus: Plan: Dayana Dodd is a 75-year-old female with past medical history significant for sarcoidosis, hypertension, Lyme's disease; who presents for concerns of increased nausea, inability to tolerate food or drink due to loose stools, and recent COVID-19 exposure. Hypoxia (acute hypoxic respiratory failure) -Desaturations to 86% while on room air in ED now requiring significant oxygen with ambulation -CXR repeat shows progression of multifocal bilateral airspace opacities - stable today on 2L, less desaturation when walking continue to try to wean to room air COVID-19 pneumonia: Patient states coughing up dark brown mucus on the morning of 02/03 we will escalate her typical doxycycline to twice daily for treatment of bronchitis. No infiltrates were seen on chest x-ray from 02/02 -CXR demonstrating slight progression of interstitial thickening with trace bilateral pleural effusions -Oxygen as needed maintaining oxygen saturations greater than 90% -Continue dexamethasone steroids for the patient is significant hypoxia -Given prolonged course (15 days from exposure/development of symptoms) patient not a candidate for remdesivir or baricitinib Hypertension: -Continue home regimen of lisinopril 20 mg daily Sarcoidosis: -Patient utilizes DuoNebs and Breo as outpatient -Continue home regimen with transition to hospital formulary while inpatient History of Lyme disease: -At home utilizes doxycycline 100 mg as needed for Lyme related symptoms, continue BID, offered to give her IV route, refused Diet: Regular CODE STATUS: Full code DVT prophylaxis: Lovenox (2) Sarcoidosis: (3) HTN (hypertension): (4) H/o Lyme disease: (5) Hypoxemia: (6) Bacteria in urine: Plan: Patient is asymptomatic bacteria in urine will not treat unless patient becomes symptomatic this is a pansensitive E. coli Admission and Anticipated Discharge Date Admission Date: February 03, 2021 Subjective patient claims that she is getting better from COVID, her real problem at this p oint is her Lyme disease she has suffered from chronic Lyme for several years she feels like we need to alter timing of Doxycycline, needs to take at 330am and 330pm, less interaction she is cutting out carbohydrates, she says "the Lyme bacteria feed off the sugars" I discussed that she is doing well, down to 2L NC, no distress, walked better to bathroom eating well, no fever, no diarrhea Review of Systems Review of Systems: All systems reviewed & are unremarkable except as noted in Subjective Respiratory: + cough, + dyspnea and + dyspnea on exertion Gastrointestinal: no abdominal pain, no nausea, no vomiting, no constipation and no diarrhea/loose stools Musculoskeletal: + joint pain (generalized aches, lower leg joints) Physical Exam Physical Exam: General: well developed, well nourished, obese female, comfortable Neck: supple, trachea midline, normal thyroid Lungs: clear to auscultation bilaterally, normal respiratory effort, no a ccessory muscle use, no distress Heart: regular S1 and S2, no murmur, peripheral pulses normal, capillary refill normal, no edema Abdomen: soft, NT, ND, + BS, no hepatomegaly, normal to percussion Extremities: normal in appearance, no cyanosis, no petechiae, strength is 5/5 bilaterally Neuro: awake, cooperative, moves all extremities, no focal motor deficits, CN II-XII intact, sensation in extremities intact, normal speech Skin: warm, dry, no rash, normal turgor Psych: Awake, alert oriented x 3, euthymic affect Results & Data Results & Data ([facility]) Vital Signs (Past 12 Hours) Vital Signs Temp Pulse Resp BP BP Pulse Ox 02/04/21 11:23 138/85 146/84 H 02/04/21 09:22 86 173/96 H 94 02/04/21 07:48 36.6 C 67 18 179/110 H 93 Laboratory Results Laboratory Results - last 24 hr 02/04/21 02/04/21 06:02 06:02 WBC 9.48 RBC 4.52 Hgb 14.0 Hct 43.5 MCV 96.2 MCH 31.0 MCHC 32.2 RDW Std Deviation 46.3 RDW Coeff of Ranulfo 13.2 Plt Count 228 MPV 10.2 Creatinine 0.92 Est Cr Clr Drug Dosing 63.9 Est GFR ( Amer) 70.1 Est GFR (Non-Af Amer) 60.5 Medications Administered Current Inpatient Medications Acetaminophen (Acetaminophen 325 Mg Tab) 650 mg PO Q4H PRN PRN Reason: pain/fever Stop: 03/03/21 01:42 Al Hydrox/Mg Hydrox/Simethicone (Aluminum/Magnesium Susp 30 Ml Udc) 30 ml PO Q6H PRN PRN Reason: Dyspepsia Stop: 03/03/21 01:42 Albuterol (Albuterol Hfa 8 Gm Inhaler) 2 puffs INH Q6H PRN PRN Reason: shortness of breath or wheezing Stop: 03/03/21 00:36 Doxycycline Hyclate (Doxycycline Hyclate 100 Mg Cap) 100 mg PO BID [facility] Stop: 02/10/21 12:29 Last Admin: 02/04/21 08:41 Dose: 100 mg Documented by: Enoxaparin Sodium (Enoxaparin Inj 40 Mg/0.4 Ml Syr) 40 mg SQ Q12H [facility] Stop: 03/03/21 06:59 Last Admin: 02/04/21 06:04 Dose: 40 mg Documented by: Fluticasone/Vilanterol (Fluticasone/Vilanterol 200/25mcg 14 Puffs/Inhaler) 1 puffs INH DAILY [facility] Stop: 03/03/21 08:59 Last Admin: 02/04/21 08:41 Dose: 1 puffs Documented by: Furosemide (Furosemide 20 Mg Tab) 20 mg PO DAILY PRN PRN Reason: edema Stop: 03/03/21 01:42 Methylprednisolone 40 mg/ (Syringe) 0.64 mls @ 1.5 mls/min IV Q8 [facility] Stop: 03/04/21 13:59 Last Admin: 02/04/21 06:04 Dose: 1.5 mls/min Documented by: Lisinopril (Lisinopril 20 Mg Tab) 20 mg PO DAILY [facility] Stop: 03/03/21 08:59 Last Admin: 02/04/21 07:50 Dose: 20 mg Documented by: Magnesium Hydroxide (Magnesium Hydroxide Susp 30 Ml Udc) 30 ml PO Q6H PRN PRN Reason: Constipation Stop: 03/03/21 01:42 Magnesium Oxide (Magnesium Oxide 400 Mg Tab) 400 mg PO BID [facility] Stop: 03/04/21 20:59 Last Admin: 02/04/21 08:41 Dose: 400 mg Documented by: Ondansetron HCl (Ondansetron Inj 2 Mg/Ml 2 Ml Vial) 4 mg IV Q6H PRN PRN Reason: Nausea Stop: 03/03/21 01:42 Polyethylene Glycol (Polyethylene (Miralax) 17 Gm Pack) 17 gm PO DAILY PRN PRN Reason: Constipation Stop: 03/03/21 01:42 PG Care Time/CCT Total # of Minutes Spent Total Time Spent with Patient: Total time spent is greater than 50% in coordination of care (as documented) at patient's floor/unit and/or counseling patient: Coding Level of Care Code 55744 Subseq Hosp Care Lvl 2 Diagnoses Pneumonia due to 2019 novel coronavirus U07.1; J12.82 Sarcoidosis D86.9 HTN (hypertension) I10 H/o Lyme disease Z86.19 Hypoxemia R09.02 Bacteria in urine R82.71
[2021-02-05] MEDS: DOXYCYCLINE HYCLATE 100 MG CAP PO SCH (03:17)
[2021-02-05] MEDS: ENOXAPARIN INJ 40 MG/0.4 ML SYR SQ SCH ×2 (06:30→18:21)
[2021-02-05] MEDS: dexAMETHasone 6 MG in SYRINGE 0 ML IV SCH (09:23)
[2021-02-05] MEDS: FLUTICASONE/VILANTEROL 200/25MCG 14 PUFFS/INHALER INH SCH (09:24)
[2021-02-05] MEDS: lisinopril 20 MG TAB PO SCH (09:24)
[2021-02-05] MEDS: MAGNESIUM OXIDE 400 MG TAB PO SCH ×2 (09:24→21:40)
[2021-02-05] MEDS ORDERED: FUROSEMIDE INJ 20 MG/2 ML VIAL IV ONE (10:04)
--- NOTE | 2021-02-05 10:04 | Hospitalist Progress Note ---
Date of Service February 05, 2021 Assessment & Plan (1) Pneumonia due to 2019 novel coronavirus: Plan: Dayana Dodd is a 75-year-old female with past medical history significant for sarcoidosis, hypertension, Lyme's disease; who presents for concerns of increased nausea, inability to tolerate food or drink due to loose stools, and recent COVID-19 exposure. Hypoxia (acute hypoxic respiratory failure) -Desaturations to 86% while on room air in ED, placed on 2L, she is stable -CXR repeat shows progression of multifocal bilateral airspace opacities - stable today on 2L, less desaturation when walking will give a dose of Lasix 20mg IV for diuresis, see if keeping lungs dry will get her off oxygen COVID-19 pneumonia -CXR 02/03 demonstrating slight progression of interstitial thickening with trace bilateral pleural effusions -Oxygen as needed maintaining oxygen saturations greater than 90%, stable on 2L, ambulating fine to the bathroom -Continue dexamethasone 6mg IV daily continue Doxycycline 100mg BID for pulmonary coverage, also for Lyme disease -Given prolonged course (15 days from exposure/development of symptoms) patient not a candidate for remdesivir or baricitinib (also not on enough oxygen) Lasix 20mg IV today, keep neg fluid balance eating and drinking quite well today, no fever Hypertension: -Continue home regimen of lisinopril 20 mg daily Sarcoidosis: -Patient utilizes DuoNebs and Breo as outpatient -Continue home regimen with transition to hospital formulary while inpatient History of Lyme disease: -At home utilizes doxycycline 100 mg as needed for Lyme related symptoms, continue BID, offered to give her IV route, refused Diet: Regular CODE STATUS: Full code DVT prophylaxis: Lovenox (2) Sarcoidosis: (3) HTN (hypertension): (4) H/o Lyme disease: (5) Hypoxemia: (6) Bacteria in urine: Plan: Patient is asymptomatic bacteria in urine will not treat unless patient becomes symptomatic this is a pansensitive E. coli Admission and Anticipated Discharge Date Admission Date: February 03, 2021 Subjective patient feeling more fatigued today, very played out, walked to bathroom and back, kept her oxygen on still with cough, not productive, no fevers/chills eating very well, had two large BM this morning discussed giving some Lasix 20mg IV, make her urinate more but hopefully can get oxygen off with diuresis she took her Doxy at 330am, tolerated well, she appreciates the time change Review of Systems Review of Systems: All systems reviewed & are unremarkable except as noted in Subjective Constitutional: + fatigue and + weakness; no fever and no chills Respiratory: + cough and + dyspnea on exertion; no dyspnea Physical Exam Physical Exam: General: well developed, well nourished, obese female, comfortable Neck: supple, trachea midline, normal thyroid Lungs: clear to auscultation bilaterally, normal respiratory effort, no accessory muscle use, no distress Heart: regular S1 and S2, no murmur, peripheral pulses normal, capillary refill normal, no edema Abdomen: soft, NT, ND, + BS, no hepatomegaly, normal to percussion Extremities: normal in appearance, no cyanosis, no petechiae, strength is 5/5 bilaterally Neuro: awake, cooperative, moves all extremities, no focal motor deficits, CN II-XII intact, sensation in extremities intact, normal speech Skin: warm, dry, no rash, normal turgor Psych: Awake, alert oriented x 3, euthymic affect Results & Data Results & Data ([facility]) Vital Signs (Past 12 Hours) Vital Signs Temp Pulse Resp BP Pulse Ox 02/05/21 06:13 36.4 C L 64 22 132/80 94 02/04/21 22:59 36.5 C 68 22 159/90 H 93 Medications Administered Current Inpatient Medications Acetaminophen (Acetaminophen 325 Mg Tab) 650 mg PO Q4H PRN PRN Reason: pain/fever Stop: 03/03/21 01:42 Al Hydrox/Mg Hydrox/Simethicone (Aluminum/Magnesium Susp 30 Ml Udc) 30 ml PO Q6H PRN PRN Reason: Dyspepsia Stop: 03/03/21 01:42 Albuterol (Albuterol Hfa 8 Gm Inhaler) 2 puffs INH Q6H PRN PRN Reason: shortness of breath or wheezing Stop: 03/03/21 00:36 Doxycycline Hyclate (Doxycycline Hyclate 100 Mg Cap) 100 mg PO BID@0330,1530 [facility] Stop: 02/10/21 12:29 Last Admin: 02/05/21 03:17 Dose: 100 mg Documented by: Enoxaparin Sodium (Enoxaparin Inj 40 Mg/0.4 Ml Syr) 40 mg SQ Q12H [facility] Stop: 03/03/21 06:59 Last Admin: 02/05/21 06:30 Dose: 40 mg Documented by: Fluticasone/Vilanterol (Fluticasone/Vilanterol 200/25mcg 14 Puffs/Inhaler) 1 puffs INH DAILY [facility] Stop: 03/03/21 08:59 Last Admin: 02/05/21 09:24 Dose: 1 puffs Documented by: Furosemide (Furosemide 20 Mg Tab) 20 mg PO DAILY PRN PRN Reason: edema Stop: 03/03/21 01:42 Dexamethasone 6 mg/ Syringe 1.5 mls @ 1 mls/min IV Q24H [facility] Stop: 03/07/21 08:59 Last Admin: 02/05/21 09:23 Dose: 1 mls/min Documented by: Lisinopril (Lisinopril 20 Mg Tab) 20 mg PO DAILY [facility] Stop: 03/03/21 08:59 Last Admin: 02/05/21 09:24 Dose: 20 mg Documented by: Magnesium Hydroxide (Magnesium Hydroxide Susp 30 Ml Udc) 30 ml PO Q6H PRN PRN Reason: Constipation Stop: 03/03/21 01:42 Magnesium Oxide (Magnesium Oxide 400 Mg Tab) 400 mg PO BID [facility] Stop: 03/04/21 20:59 Last Admin: 02/05/21 09:24 Dose: 400 mg Documented by: Ondansetron HCl (Ondansetron Inj 2 Mg/Ml 2 Ml Vial) 4 mg IV Q6H PRN PRN Reason: Nausea Stop: 03/03/21 01:42 Polyethylene Glycol (Polyethylene (Miralax) 17 Gm Pack) 17 gm PO DAILY PRN PRN Reason: Constipation Stop: 03/03/21 01:42 PG Care Time/CCT Total # of Minutes Spent Total Time Spent with Patient: Total time spent is greater than 50% in coordination of care (as documented) at patient's floor/unit and/or counseling patient: Coding Level of Care Code 99396 Subseq Hosp Care Lvl 2 Diagnoses Pneumonia due to 2019 novel coronavirus U07.1; J12.82 Sarcoidosis D86.9 HTN (hypertension) I10 H/o Lyme disease Z86.19 Hypoxemia R09.02 Bacteria in urine R82.71
[2021-02-05] MEDS: DOXYCYCLINE HYCLATE 100 MG in DEXTROSE 5% 100 ML IV SCH (21:40)
[2021-02-06 06:15] LABS: Hematocrit (blood only) 45.9 % (37-47); Hemoglobin 15.2 g/dL (12.0-16.0); Mean Corpuscular Hemoglobin 30.9 pg (25-34); Mean Corpuscular Hgb Conc 33.1 g/dL (32-36); Mean Corpuscular Volume 93.3 fL (80-100); Mean Platelet Volume 10.2 fL (7.4-10.4); Platelet Count 277 K/uL (130-400); RDW Coefficient of Variation 13.5 % (11.5-14.5); RDW Standard Deviation 46.4 fL (36.4-46.3); Red Blood Count 4.92 M/uL (4.2-5.4); White Blood Count 7.79 K/uL (4.8-10.8)
[2021-02-06] MEDS: ENOXAPARIN INJ 40 MG/0.4 ML SYR SQ SCH ×2 (06:27→18:09)
[2021-02-06 06:40] LABS: BUN Creatinine Ratio 30.3 (10-20); C Reactive Protein 0.8 mg/dl (0-0.29); Calcium 8.8 mg/dl (8.5-10.1); Creatinine Clr Calc Pharmacy 61.9 ml/min; Est GFR (African American) 67.4 ml/min; Est GFR (Non-African American) 58.2 ml/min; Potassium 4.1 mmol/L (3.5-5.1)
[2021-02-06] MEDS: dexAMETHasone 6 MG in SYRINGE 0 ML IV SCH (08:12)
[2021-02-06] MEDS: FLUTICASONE/VILANTEROL 200/25MCG 14 PUFFS/INHALER INH SCH (08:12)
[2021-02-06] MEDS: MAGNESIUM OXIDE 400 MG TAB PO SCH ×2 (08:13→21:01)
[2021-02-06] MEDS: lisinopril 20 MG TAB PO SCH (08:13)
[2021-02-06] MEDS: DOXYCYCLINE HYCLATE 100 MG in DEXTROSE 5% 100 ML IV SCH (10:10)
--- NOTE | 2021-02-06 15:19 | Hospitalist Progress Note ---
Date of Service February 06, 2021 Assessment & Plan (1) Pneumonia due to 2019 novel coronavirus: Plan: Dayana Dodd is a 75-year-old female with past medical history significant for sarcoidosis, hypertension, Lyme's disease; who presents for concerns of increased nausea, inability to tolerate food or drink due to loose stools, and recent COVID-19 exposure. Hypoxia (acute hypoxic respiratory failure) -Desaturations to 86% while on room air in ED, placed on 2L, she is stable -CXR repeat shows progression of multifocal bilateral airspace opacities will repeat CXR tomorrow AM - stable on room air, needs 3L on exertion continue Lasix 20mg IV for diuresis COVID-19 pneumonia -CXR 02/03 demonstrating slight progression of interstitial thickening with trace bilateral pleural effusions -2 step today, stable on room air at rest, 3L on exertion -Continue dexamethasone 6mg IV daily, plan 10 days of treatment continue Doxycycline 100mg BID for pulmonary coverage, also for Lyme disease -Given prolonged course (15 days from exposure/development of symptoms) patient not a candidate for remdesivir or baricitinib (also not on enough oxygen) Lasix 20mg IV daily, keep neg fluid balance eating and drinking better, no fever Hypertension: -Continue home regimen of lisinopril 20 mg daily Sarcoidosis: -Patient utilizes DuoNebs and Breo as outpatient -Continue home regimen with transition to hospital formulary while inpatient History of Lyme disease: -At home utilizes doxycycline 100 mg as needed for Lyme related symptoms, continue BID, offered to give her IV route, refused Diet: Regular CODE STATUS: Full code DVT prophylaxis: Lovenox (2) Sarcoidosis: (3) HTN (hypertension): (4) H/o Lyme disease: (5) Hypoxemia: (6) Bacteria in urine: Plan: Patient is asymptomatic bacteria in urine will not treat unless patient becomes symptomatic this is a pansensitive E. coli Admission and Anticipated Discharge Date Admission Date: February 03, 2021 Subjective patient frustrated, feels like she should be better by now assured her that this is normal time frame for recovery from COVID still with some nausea issues, gets short of breath on exertion making a lot of urine with the Lasix Review of Systems Review of Systems: All systems reviewed & are unremarkable except as noted in Subjective Constitutional: + fatigue and + weakness; no fever Respiratory: + cough, + dyspnea and + dyspnea on exertion Gastrointestinal: + nausea; no abdominal pain, no vomiting, no constipation and no diarrhea/loose stools Physical Exam Physical Exam: General: well developed, well nourished, obese female, comfortable Neck: supple, trachea midline, normal thyroid Lungs: clear to auscultation bilaterally, normal respiratory effort, no accessory muscle use, no distress Heart: regular S1 and S2, no murmur, peripheral pulses normal, capillary refill normal, no edema Abdomen: soft, NT, ND, + BS, no hepatomegaly, normal to percussion Extremities: normal in appearance, no cyanosis, no petechiae, strength is 5/5 bilaterally Neuro: awake, cooperative, moves all extremities, no focal motor deficits, CN II-XII intact, sensation in extremities intact, normal speech Skin: warm, dry, no rash, normal turgor Psych: Awake, alert oriented x 3, euthymic affect Results & Data Results & Data ([facility]) Vital Signs (Past 12 Hours) Vital Signs Temp Pulse Resp BP Pulse Ox 02/06/21 14:45 36.6 C 74 18 127/83 92 02/06/21 07:30 36.5 C 69 18 136/84 95 PG Care Time/CCT Total # of Minutes Spent Total Time Spent with Patient: Total time spent is greater than 50% in coordination of care (as documented) at patient's floor/unit and/or counseling patient: Coding Level of Care Code 31271 Subseq Hosp Care Lvl 2 Diagnoses Pneumonia due to 2019 novel coronavirus U07.1; J12.82 Sarcoidosis D86.9 HTN (hypertension) I10 H/o Lyme disease Z86.19 Hypoxemia R09.02 Bacteria in urine R82.71
[2021-02-06] MEDS: DOXYCYCLINE HYCLATE 100 MG CAP PO SCH (21:01)
[2021-02-07 06:09] LABS: Hematocrit (blood only) 45.4 % (37-47); Hemoglobin 14.7 g/dL (12.0-16.0); Mean Corpuscular Hgb Conc 32.4 g/dL (32-36); Mean Corpuscular Volume 95.8 fL (80-100); Mean Platelet Volume 10.3 fL (7.4-10.4); Platelet Count 255 K/uL (130-400); RDW Coefficient of Variation 13.6 % (11.5-14.5); RDW Standard Deviation 47.5 fL (36.4-46.3); Red Blood Count 4.74 M/uL (4.2-5.4); White Blood Count 8.45 K/uL (4.8-10.8)
[2021-02-07 06:37] LABS: Creatinine Clr Calc Pharmacy 64.6 ml/min; Est GFR (Non-African American) 61.3 ml/min
[2021-02-07] MEDS: ENOXAPARIN INJ 40 MG/0.4 ML SYR SQ SCH ×2 (06:42→18:32)
[2021-02-07] MEDS: FLUTICASONE/VILANTEROL 200/25MCG 14 PUFFS/INHALER INH SCH (08:11)
[2021-02-07] MEDS: DOXYCYCLINE HYCLATE 100 MG CAP PO SCH ×2 (08:12→21:44)
[2021-02-07] MEDS: lisinopril 20 MG TAB PO SCH (08:12)
[2021-02-07] MEDS: MAGNESIUM OXIDE 400 MG TAB PO SCH ×2 (08:12→21:44)
--- NOTE | 2021-02-07 09:17 | XRay Report ---
XR chest 1V portable HISTORY: 75 years-old Female hypoxia acute hypoxia COMPARISON: Chest radiograph 02/02/2021, chest CT 01/03/2021 TECHNIQUE: Portable AP view of the chest FINDINGS: Chronic reticular nodular opacities with hyperinflation and calcified mediastinal and hilar lymph nod es. Cardiac silhouette is upper limits of normal in size. No pneumothorax or large pleural effusion. Ill-defined patchy bilateral airspace opacities are redemonstrated, mildly progressed within the left upper lung. Degenerative changes of the shoulders and spine. IMPRESSION: 1. Ill-defined bilateral airspace opacities are redemonstrated, mildly progressed within the left upp er lung suggestive of an infectious or inflammatory process. 2. Chronic reticular nodular opacities with evidence of prior granulomatous disease redemonstrated. ACT 112: Negative or not required by law. The above report was generated using voice recognition software. It may contain grammatical, syntax o r spelling errors. Electronically signed by: Jonah Baldwin M.D. 02/07/2021 9:16 AM
[2021-02-07] MEDS: dexAMETHasone 6 MG in SYRINGE 0 ML IV SCH (10:24)
[2021-02-07] MEDS: FUROSEMIDE INJ 20 MG/2 ML VIAL IV SCH (10:24)
--- NOTE | 2021-02-07 14:19 | Hospitalist Progress Note ---
Date of Service February 07, 2021 Assessment & Plan (1) Pneumonia due to 2019 novel coronavirus: Plan: Dayana Dodd is a 75-year-old female with past medical history significant for sarcoidosis, hypertension, Lyme's disease; who presents for concerns of increased nausea, inability to tolerate food or drink due to loose stools, and recent COVID-19 exposure. Hypoxia (acute hypoxic respiratory failure) -CXR 02/07 shows progression of multifocal bilateral airspace opacities - stable on room air, needs 3L on exertion, will see about going home tomorrow if she feels better continue dexamethasone continue Lasix 20mg IV daily to keep lungs dry COVID-19 pneumonia -2 step 02/06 in afternoon, stable on room air at rest, 3L on exertion -Continue dexamethasone 6mg IV daily, plan 10 days of treatment. can change to PO on discharge continue Doxycycline 100mg BID for pulmonary coverage, also for Lyme disease -Given prolonged course (15 days from exposure/development of symptoms) patient not a candidate for remdesivir or baricitinib (also not on enough oxygen) Lasix 20mg IV daily, keep neg fluid balance eating and drinking better, no fever Hypertension: -Continue home regimen of lisinopril 20 mg daily Sarcoidosis: -Patient utilizes DuoNebs and Breo as outpatient -Continue home regimen with transition to hospital formulary while inpatient History of Lyme disease: -At home utilizes doxycycline 100 mg as needed for Lyme related symptoms, continue BID, offered to give her IV route, refused Diet: Regular CODE STATUS: Full code DVT prophylaxis: Lovenox (2) Sarcoidosis: (3) HTN (hypertension): (4) H/o Lyme disease: (5) Hypoxemia: (6) Bacteria in urine: Plan: Patient is asymptomatic bacteria in urine will not treat unless patient becomes symptomatic this is a pansensitive E. coli Admission and Anticipated Discharge Date Admission Date: February 03, 2021 Subjective patient just does not understand why she is not better, she feels "so weak and fatigued" she slept well last night she continues to have some intermittent nausea but she is eating, had a BM today, making urine CXR this morning shows some progression of infiltrates consistent with the pneumonia CBC and Cr are stable today discussed that this is normal, can take 1-2 weeks to get over COVID, sometimes longer will try to get her home tomorrow if we can Review of Systems Review of Systems: All systems reviewed & are unremarkable except as noted in Subjective Constitutional: + fatigue and + weakness Respiratory: + dyspnea on exertion Gastrointestinal: + nausea Physical Exam Physical Exam: General: well developed, well nourished, obese female, comfortable Neck: supple, trachea midline, normal thyroid Lungs: clear to auscultation bilaterally, normal respiratory effort, no accessory muscle use, no distress Heart: regular S1 and S2, no murmur, peripheral pulses normal, capillary refill normal, no edema Abdomen: soft, NT, ND, + BS, no hepatomegaly, normal to percussion Extremities: normal in appearance, no cyanosis, no petechiae, strength is 5/5 bilaterally Neuro: awake, cooperative, moves all extremities, no focal motor deficits, CN II-XII intact, sensation in extremities intact, normal speech Skin: warm, dry, no rash, normal turgor Psych: Awake, alert oriented x 3, euthymic affect Results & Data Results & Data ([facility]) Vital Signs (Past 12 Hours) Vital Signs Temp Pulse Resp BP Pulse Ox 02/07/21 08:08 36.5 C 68 18 122/79 91 Laboratory Results Laboratory Results - last 24 hr 02/07/21 02/07/21 05:42 05:42 WBC 8.45 RBC 4.74 Hgb 14.7 Hct 45.4 MCV 95.8 MCH 31.0 MCHC 32.4 RDW Std Deviation 47.5 H RDW Coeff of Ranulfo 13.6 Plt Count 255 MPV 10.3 Creatinine 0.91 Est Cr Clr Drug Dosing 64.6 Est GFR ( Amer) 71.0 Est GFR (Non-Af Amer) 61.3 Diagnostic Findings XR chest 1V portable HISTORY: 75 years-old Female hypoxia acute hypoxia COMPARISON: Chest radiograph 02/02/2021, chest CT 01/03/2021 TECHNIQUE: Portable AP view of the chest FINDINGS: Chronic reticular nodular opacities with hyperinflation and calcified mediastinal and hilar lymph nodes. Cardiac silhouette is upper limits of normal in size. No pneumothorax or large pleural effusion. Ill-defined patchy bilateral airspace opacities are redemonstrated, mildly progressed within the left upper lung. Degenerative changes of the shoulders and spine. IMPRESSION: 1. Ill-defined bilateral airspace opacities are redemonstrated, mildly progressed within the left upper lung suggestive of an infectious or inflammatory process. 2. Chronic reticular nodular opacities with evidence of prior granulomatous disease redemonstrated. Medications Administered Current Inpatient Medications Acetaminophen (Acetaminophen 325 Mg Tab) 650 mg PO Q4H PRN PRN Reason: pain/fever Stop: 03/03/21 01:42 Al Hydrox/Mg Hydrox/Simethicone (Aluminum/Magnesium Susp 30 Ml Udc) 30 ml PO Q6H PRN PRN Reason: Dyspepsia Stop: 03/03/21 01:42 Albuterol (Albuterol Hfa 8 Gm Inhaler) 2 puffs INH Q6H PRN PRN Reason: shortness of breath or wheezing Stop: 03/03/21 00:36 Doxycycline Hyclate (Doxycycline Hyclate 100 Mg Cap) 100 mg PO BID [facility] Stop: 02/13/21 20:59 Last Admin: 02/07/21 08:12 Dose: 100 mg Documented by: Enoxaparin Sodium (Enoxaparin Inj 40 Mg/0.4 Ml Syr) 40 mg SQ Q12H CELI Stop: 03/03/21 06:59 Last Admin: 02/07/21 06:42 Dose: 40 mg Documented by: Fluticasone/Vilanterol (Fluticasone/Vilanterol 200/25mcg 14 Puffs/Inhaler) 1 puffs INH DAILY CELI Stop: 03/03/21 08:59 Last Admin: 02/07/21 08:11 Dose: 1 puffs Documented by: Furosemide (Furosemide Inj 20 Mg/2 Ml Vial) 20 mg IV QAM CELI Stop: 03/09/21 08:59 Last Admin: 02/07/21 10:24 Dose: 20 mg Documented by: Dexamethasone 6 mg/ Syringe 1.5 mls @ 1 mls/min IV Q24H CELI Stop: 03/07/21 08:59 Last Admin: 02/07/21 10:24 Dose: 1 mls/min Documented by: Lisinopril (Lisinopril 20 Mg Tab) 20 mg PO DAILY CELI Stop: 03/03/21 08:59 Last Admin: 02/07/21 08:12 Dose: 20 mg Documented by: Magnesium Hydroxide (Magnesium Hydroxide Susp 30 Ml Udc) 30 ml PO Q6H PRN PRN Reason: Constipation Stop: 03/03/21 01:42 Magnesium Oxide (Magnesium Oxide 400 Mg Tab) 400 mg PO BID CELI Stop: 03/04/21 20:59 Last Admin: 02/07/21 08:12 Dose: 400 mg Documented by: Ondansetron HCl (Ondansetron Inj 2 Mg/Ml 2 Ml Vial) 4 mg IV Q6H PRN PRN Reason: Nausea Stop: 03/03/21 01:42 Polyethylene Glycol (Polyethylene (Miralax) 17 Gm Pack) 17 gm PO DAILY PRN PRN Reason: Constipation Stop: 03/03/21 01:42 PG Care Time/CCT Total # of Minutes Spent Total Time Spent with Patient: Total time spent is greater than 50% in coordination of care (as documented) at patient's floor/unit and/or counseling patient: Coding Level of Care Code 02264 Subseq Hosp Care Lvl 2 Diagnoses Pneumonia due to 2019 novel coronavirus U07.1; J12.82 Sarcoidosis D86.9 HTN (hypertension) I10 H/o Lyme disease Z86.19 Hypoxemia R09.02 Bacteria in urine R82.71
[2021-02-07 22:40] VITALS: PULSE 75; TEMP 97.7; O2SAT 91
[2021-02-08] MEDS: ENOXAPARIN INJ 40 MG/0.4 ML SYR SQ SCH (06:02)
[2021-02-08] MEDS: dexAMETHasone 6 MG in SYRINGE 0 ML IV SCH (08:31)
[2021-02-08] MEDS: DOXYCYCLINE HYCLATE 100 MG CAP PO SCH (08:31)
[2021-02-08] MEDS: MAGNESIUM OXIDE 400 MG TAB PO SCH (08:32)
[2021-02-08] MEDS: lisinopril 20 MG TAB PO SCH (08:32)
[2021-02-08] MEDS: FLUTICASONE/VILANTEROL 200/25MCG 14 PUFFS/INHALER INH SCH (08:33)
[2021-02-08] MEDS: FUROSEMIDE INJ 20 MG/2 ML VIAL IV SCH (08:39)
--- NOTE | 2021-02-08 10:05 | Discharge Summary ---
Date of Service February 08, 2021 Admission HPI Per Admitting Provider Dayana Dodd is a 75-year-old female with past medical history significant for sarcoidosis, hypertension, Lyme's disease; who presents for concerns of increased nausea, inability to tolerate food or drink due to loose stools, and recent COVID-19 exposure. Earlier this month was at a birthday libertarian and subsequently was notified 2 days later that son was positive for COVID-19, since that time has had slow development of her symptoms. This ultimately culminated in over the last several days being unable to tolerate eating and drinking and any significant quantities, as well as continuing to feel weaker as time passed. Recognizes that this fatigue had been slowly developing over these 2 weeks. While in ED was continuing to do well, but after a short trip/walk to the bathroom she dropped her oxygen saturations to approximately 86%. Requiring nasal cannula oxygen supplementation ordered to push back up. Has no history of oxygen requirement, with only pulmonary history being her sarcoidosis. Currently denies chest pain, shortness of breath, palpitations, changes in vision, headaches, lightheadedness, dizziness, changes in strength, abdominal pain, nausea, vomiting, diarrhea. Principal Diagnosis COVID 19 pneumonia Acute hypoxic respiratory failure Chronic Lyme disease Discharge Exam General: well developed, well nourished, obese female, comfortable Neck: supple, trachea midline, normal thyroid Lungs: clear to auscultation bilaterally, normal respiratory effort, no accessory muscle use, no distress Heart: regular S1 and S2, no murmur, peripheral pulses normal, capillary refill normal, no edema Abdomen: soft, NT, ND, + BS, no hepatomegaly, normal to percussion Extremities: normal in appearance, no cyanosis, no petechiae, strength is 5/5 bilaterally Neuro: awake, cooperative, moves all extremities, no focal motor deficits, CN II-XII intact, sensation in extremities intact, normal speech Skin: warm, dry, no rash, normal turgor Psych: Awake, alert oriented x 3, euthymic affect Discharge Data Allergies Allergy/AdvReac Type Severity Reaction Status Date / Time house dust mite Allergy Mild Sneezing Verified 01/31/21 19:09 mold Allergy Mild Sneezing Verified 01/31/21 19:09 Consultations 01/31/21 23:09 ED Decision to Admit Stat Hospital Course (1) Pneumonia due to 2019 novel coronavirus: Daayna Dodd is a 75-year-old female with past medical history significant for sarcoidosis, hypertension, Lyme's disease; who presents for concerns of increased nausea, inability to tolerate food or drink due to loose stools, and recent COVID-19 exposure. Hypoxia (acute hypoxic respiratory failure) -CXR 02/07 showed progression of multifocal bilateral airspace opacities, however she is feeling better, down to room air at rest - needs 3L on exertion, will arrange for home oxygen continue dexamethasone 6mg PO daily x 3 more days for 10 days total treatment continue Lasix 20mg PO daily x 3-4 days, can then resume taking as needed for edema COVID-19 pneumonia -2 step 02/06 in afternoon, stable on room air at rest, 3L on exertion, she remains stable on room air, feels much better -treated with dexamethasone 6mg IV daily, change to 6mg PO daily, 10 days of treatment continue Doxycycline 100mg BID for pulmonary coverage, also for Lyme disease, titrate back to daily after a week, discuss with PCP -Given prolonged course (15 days from exposure/development of symptoms) patient not a candidate for remdesivir or baricitinib (also not on enough oxygen) Lasix 20mg IV daily, keep neg fluid balance eating and drinking better, no fever Hypertension: -Continue home regimen of lisinopril 20 mg daily Sarcoidosis: -Patient utilizes DuoNebs and Breo as outpatient -Continue home regimen with transition to hospital formulary while inpatient History of Lyme disease: -At home utilizes doxycycline 100 mg as needed for Lyme related symptoms, continue BID for a week, she is feeling better taper back to daily after a week and follow up with PCP Diet: Regular CODE STATUS: Full code DVT prophylaxis: Lovenox (2) Sarcoidosis: (3) HTN (hypertension): (4) H/o Lyme disease: (5) Hypoxemia: (6) Bacteria in urine: Patient is asymptomatic bacteria in urine will not treat unless patient becomes symptomatic this is a pansensitive E. coli Total Time Total Time Spent Total Time Spent (In Minutes): 32 Total Time Includes: Examination of the Patient, Discharge Planning and Medication Reconciliation Discharge Plan Discharge Items Patient Disposition: Home - Self-Care Reason For Visit: COVID-19 Discharge Diagnosis: COVID 19 pneumonia Condition on Discharge: Good Goals: complete 3 more days of dexamethasone stay on doxycycline for 2-3 weeks, follow up with PCP Activity: Resume your previous activity Weightbearing: Full weightbearing Non-emergency contact: Primary Care Provider Call non-emergency contact if: you have any medication questions, your symptoms worsen and you have a fever Follow-up/Referrals: Nimo Gore MD [Primary Care Provider] - 02/15/21 2:00 pm (1 week VIRTUAL VISIT DUE TO +COVID) Diet: Regular Addtl Attending Provider Instructions: Medications: - DEXAMETHASONE: 6mg daily for three more days, start tomorrow morning - DOXYCYCLINE: 100mg twice a day for next week, can back off to once daily if yo u are feeling better, check with Dr. Gore COVID 19 infection, pneumonia responded well to dexamethasone, supplemental oxygen off oxygen at rest now for 2 days which is a good sign you still need to use 3L when you are walking or exerting yourself, can likely taper that down to 2L the next week then off after two weeks stay well nourished, well hydrated you are prescribed Lasix 20mg daily as needed for edema normally, I would like you to use it daily for the next 3 days to keep lungs dry, then use it as needed again you are more than 14 days out from onset of symptoms, no longer contagious, no need to stay isolated Lyme disease: continue Doxy twice a day for a week and then cut back to daily, can transition back to as needed at your discretion, check with Dr. Gore Pending Studies at Discharge: No Stand-Alone Forms: My [facility] [employer], Smoking Cessation Medications and DC Order Prescriptions: New doxycycline hyclate 100 mg Capsule 100 mg PO BID 28 Days Qty: 56 RF: 0 dexamethasone 4 mg tablet 6 mg PO DAILY 3 Days Qty: 5 RF: 0 Continued albuterol sulfate 90 mcg/actuation HFA aerosol inhaler 2 puff inhalation Q6H PRN (Reason: shortness of breath or wheezing) Qty: 8.5 RF: 1 zinc acetate 50 mg (zinc) capsule 50 mg PO DAILY RF: 0 selenium 200 mcg capsule 200 mcg PO DAILY RF: 0 omega-3 fatty acids [Fish Oil Concentrate] 1,000 mg capsule 1,000 mg PO DAILY RF: 0 furosemide [Lasix] 20 mg tablet 20 mg PO DAILY PRN (Reason: edema) Qty: 30 RF: 1 ascorbic acid (vitamin C) 1,000 mg tablet 1 gm PO DAILY RF: 0 cholecalciferol (vitamin D3) 5,000 unit capsule 5,000 units PO DAILY RF: 0 lisinopril 20 mg tablet 20 mg PO DAILY Qty: 90 RF: 3 Breo Ellipta 200-25 mcg/dose blister with device 1 inh inhalation DAILY Qty: 60 RF: 3 aspirin 500 mg Tablet 500 mg PO DAILY RF: 0 cyanocobalamin (vitamin B-12) [Vitamin B-12] 1,000 mcg Tablet 1,000 mcg PO DAILY RF: 0 vitamin E 800 unit Capsule 800 unit PO DAILY RF: 0 coQ10 (ubiquinol) 200 mg Capsule 200 mg PO DAILY RF: 0 Discontinued doxycycline hyclate 100 mg capsule 100 mg PO DAILY PRN (Reason: FOR LYMES DISEASE) RF: 0 Discharge Orders: Discharge Order (Routine); Ordered 02/08/21 Ordered By: Jeronimo Joshua/Other Patient Handouts: Disinfecting Your Home of COVID-19, How COVID-19 Spreads, COVID-19 Home Care, Proning COVID-19 Admission Data Admit Date/Time: 02/03/21 19:11 Attending Provider: Jeronimo Urbina Admit Provider: Ravi Melendez Primary Care Provider: Nimo Gore. Other Providers: Raymond Campo Other Interventions: Discharge Summary Assessment (RN) Last Done: 02/08/21 11:20 Coding Level of Care Code D/C DAY MANAGEMENT >30 MINS Diagnoses Pneumonia due to 2019 novel coronavirus U07.1; J12.82 Sarcoidosis D86.9 HTN (hypertension) I10 H/o Lyme disease Z86.19 Hypoxemia R09.02 Bacteria in urine R82.71
[2021-02-08 11:23] VITALS: BP 133/84
== END 2021-02-08 16:17 | disposition home or self-care (01) | DRG 177 ==
LOC: ED 17:18 → 3W 17:18 → SUATTDRO 02-01 00:37

== ENCOUNTER 2024-07-26 11:38 | Observation (INO) ==
[2024-07-26 12:34] LABS: Basophils # (auto) 0.05 K/uL (0.00-0.20); Basophils % (auto) 0.7 %; Eosinophils # (auto) 0.44 K/uL (0.00-0.50); Eosinophils % (auto) 6.6 %; Hematocrit (blood only) 46.4 % (37.0-47.0); Hemoglobin 15.5 g/dl (12.0-16.0); Immature Granulocytes # (auto) 0.07 K/uL (0.01-0.20); Lymphocytes # (auto) 0.78 K/uL (1.20-3.40); Lymphocytes % (auto) 11.7 %; Mean Corpuscular Hemoglobin 30.2 pg (25.0-34.0); Mean Corpuscular Hgb Conc 33.4 g/dL (32.0-36.0); Mean Corpuscular Volume 90.3 fL (80.0-100.0); Mean Platelet Volume 9.9 fL (9.4-12.4); Monocytes # (auto) 0.85 K/uL (0.11-0.59); Monocytes % (auto) 12.7 %; Neutrophils # (auto) 4.48 K/uL (1.40-6.50); Neutrophils % (auto) 67.3 %; Platelet Count 211 K/uL (130-400); RDW Coefficient of Variation 14.3 % (11.5-14.5); RDW Standard Deviation 47.4 fL (36.4-46.3); Red Blood Count 5.14 M/uL (4.20-5.40); White Blood Count 6.67 K/ul (4.8-10.8)
[2024-07-26 12:51] LABS: Appearance Urine Clear (Clear); Bilirubin Urine Negative (Negative); Blood Urine Negative (Negative); Color Urine Yellow; Glucose Urine UA Negative (Negative); Ketones Urine Negative (Negative); Leukocyte Esterase Urine Negative (Negative); Nitrite Urine Negative (Negative); Protein Urine Negative (Negative); Urobilinogen Urine Negative (Negative); pH Urine 5.5 (4.5-7.5)
[2024-07-26 13:03] LABS: Albumin Level 4.3 gm/dl (3.4-5.0); Anion Gap 8 (3-11); Bilirubin,Total 0.9 mg/dl (0.2-1.0); Calcium 9.6 mg/dl (8.6-10.3); Carbon Dioxide 23 mmol/L (21-32); Chloride 107 mmol/L (98-107); Potassium 4.4 mmol/L (3.5-5.1); Sodium 138 mmol/L (136-145)
[2024-07-26 13:09] LABS: Alanine Aminotransferase 30 U/L (7-52); Albumin Globulin Ratio 1.4 (0.9-2); Alkaline Phosphatase 73 U/L (34-104); Aspartate Aminotransferase 23 U/L (13-39); BUN Creatinine Ratio 25.8 (10-20); Blood Urea Nitrogen 25 mg/dl (6-23); Glucose 110 mg/dl (70-99(Fasting)); Total Protein 7.3 gm/dl (6.0-8.3)
[2024-07-26 14:01] LABS: Magnesium 2.1 mg/dl (1.7-2.4)
[2024-07-26 14:09] LABS: Troponin I High Sensitivity 2.5 pg/ml (0-14)
--- NOTE | 2024-07-26 14:15 | Emergency Department Note ---
History of Present Illness General Chief complaint: Illness Stated complaint: DIZZY, LIGHTHEADED, VOMITING Time Seen by Provider: 07/26/24 14:03 History of Present Illness Maximum Pain Intensity: 0 This is a 78-year-old female that presents to the emergency department via private vehicle accompanied by daughter with complaints of "dizziness, lightheadedness, vomiting". The patient notes that she was seen here this past month and diagnosed with a UTI. She continues with the same symptoms noting she feels overall shaky, dizzy and significant nausea. She denies any true pain. Per review of the EMR patient urinalysis dated 07/02/2024 resulted with greater than 100,000 CFU per mL E. coli that was pansensitive other than resistant to gentamicin. Patient was placed on oral cefdinir. She completed this course x 1 week. Patient followed up with PCP and had repeat urinalysis on 07/11/2024. E. coli was no longer present however this new sample was growing Pseudomonas aeruginosa 60,000 CFU per mL. This was pansensitive. Patient was extended on oral cefdinir. Patient notes that her symptoms continue. She is here today worried about progressive infection. Home Medications Medication Instructions Recorded Confirmed Type ascorbic acid (vitamin C) 1,000 mg 1 gm PO DAILY 09/14/18 07/26/24 History tablet cholecalciferol (vitamin D3) 125 5,000 units PO DAILY 09/14/18 07/26/24 History mcg (5,000 unit) capsule omega-3 fatty acids 1,000 mg 1,000 mg PO DAILY 10/27/18 07/26/24 History capsule (Fish Oil Concentrate) selenium 200 mcg capsule 200 mcg PO DAILY 10/27/18 07/26/24 History zinc acetate 50 mg (zinc) capsule 50 mg PO DAILY 10/27/18 07/26/24 History aspirin 500 mg tablet 500 mg PO DAILY 03/23/19 07/26/24 History coQ10 (ubiquinol) 200 mg capsule 200 mg PO DAILY 01/31/21 07/26/24 History cyanocobalamin (vitamin B-12) 1,000 mcg PO DAILY 01/31/21 07/26/24 History 1,000 mcg tablet (Vitamin B-12) vitamin E 800 unit capsule 800 unit PO DAILY 01/31/21 07/26/24 History lisinopril 20 mg tablet 20 mg PO DAILY #90 tabs 03/25/24 07/26/24 Rx furosemide 20 mg tablet (Lasix) 20 mg PO DAILY PRN edema #90 tabs 03/29/24 07/26/24 Rx fluticasone 250 mcg-salmeterol 50 1 inh inhalation BID #60 ea 05/23/24 07/26/24 Rx mcg/dose blistr powdr for inhalation (Advair Diskus) doxycycline hyclate 100 mg capsule 100 mg PO DAILY #30 caps 07/25/24 07/26/24 Rx albuterol sulfate 90 mcg/actuation 2 puff inhalation UD PRN shortness 07/26/24 07/26/24 History aerosol inhaler of breath or wheezing azelastine 137 mcg (0.1 %) nasal 2 spray intranasal BID #30 mL 07/26/24 07/26/24 Rx spray Allergies Allergy/AdvReac Type Severity Reaction Status Date / Time house dust mite Allergy Mild Sneezing Verified 07/05/24 14:08 mold Allergy Mild Sneezing Verified 07/05/24 14:08 Past Med/Surg History Problem List (Updated 07/26/24 @ 18:15 by Ghassan Torres PA-C) Recent urinary tract infection (Acute) Nausea & vomiting (Acute) Dizziness (Acute) Impaired fasting glucose (Chronic) Multiple pulmonary nodules determined by computed tomography of lung (Chronic) Sarcoidosis (Chronic) HTN (hypertension) (Chronic) Medical History Squamous cell skin cancer, face Lyme disease Surgical History History of cholecystectomy [place] teeth extracted History of hysterectomy History of ovarian cystectomy Family History Mother Breast cancer Other Cancer Colon cancer Diabetes Heart disease Hypertension Denies family history of Tuberculosis Ovarian cancer Prostate cancer Myocardial infarction Emphysema, unspecified Lung disease Asthma Social History Smoking Status: Never smoker Second Hand Exposure: No; Do You Dip or Chew Tobacco: No; Hx Alcohol Use: No Hx Substance Use: No Preferred Language: [place] Communication Ability: Effective Visual Impairment: No Limitations Hearing Ability: Normal 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 Beliefs That Will Affect Care: None marital status: ivorced Current Living Situation: Alone Current Living Situation Comment: cares for self current occupational status: employed How many Children do You have: 1 Feels Safe at Home: Yes Safety Concerns: Feels Safe At This Time Dental Care, Regularly: No Physical Activity Frequency: Daily Seatbelt Use: always Assistive Devices: Cane Review of Systems A total of 10 systems reviewed and were otherwise negative Physical Exam Vital Signs Vital Signs - 24 hr 07/26/24 11:44 07/26/24 14:18 07/26/24 14:26 Temperature 36.4 C L Temperature Source Temporal Artery Scan Pulse Rate 83 73 Pulse Rate [Apical] 87 Respiratory Rate 26 H 22 Respiratory Effort / Characteristics Spontaneous Non-Labored Spontaneous Respiratory Depth Shallow Normal Respiratory Pattern Tachypnea Blood Pressure 171/100 H Blood Pressure [Right Arm] 146/94 H Blood Pressure Mean 123 Blood Pressure Mean [Right Arm] 111 Blood Pressure Position [Right Arm] Semi-fowlers Pulse Oximetry 99 99 Oxygen Delivery Method Room Air Room Air Sepsis Recent Fever Within 48 Hours No Sepsis New/Unexplained Change in Mental Status N/A Sepsis Action Taken by Nursing No Action Required 07/26/24 15:51 07/26/24 17:35 07/26/24 17:35 Temperature Temperature Source Pulse Rate Pulse Rate [Apical] 73 86 Respiratory Rate 24 21 Respiratory Effort / Characteristics Non-Labored Spontaneous Non-Labored Spontaneous Spontaneous SOB on Exertion Respiratory Depth Normal Normal Respiratory Pattern Blood Pressure Blood Pressure [Right Arm] 151/85 H 157/96 H Blood Pressure Mean Blood Pressure Mean [Right Arm] 107 116 Blood Pressure Position [Right Arm] Pulse Oximetry 97 95 Oxygen Delivery Method Room Air Room Air Sepsis Recent Fever Within 48 Hours Sepsis New/Unexplained Change in Mental Status Sepsis Action Taken by Nursing VITAL SIGNS - Vital signs and nursing notes were reviewed. Hypertensive, tachypneic, otherwise stable and afebrile. GENERAL -78-year-old female appearing her stated age who is in no acute distress but appears unwell, does have some shallow and increased respiratory rate breathing. Communicates well with provider and answers questions appropriately. SKIN - Without rashes. No meningeal or petechial rash. HEAD - NC/AT. EYES - PERRL with EOMI bilaterally. Sclera anicteric. EARS - No deformities of external structures noted on gross examination bilaterally. NOSE - Midline and without cyanosis. No epistaxis or purulent drainage noted. MOUTH/OROPHARYNX - Without perioral cyanosis. Clinically dry appearing with dry mucosa. NECK - Neck with FROM. No nuchal rigidity. LUNGS - CTA CARDIAC - RRR ABDOMEN - Abdominal contour normal without pulsations or visible masses. BS normoactive all four quadrants. No tenderness, palpable masses, hepatosplenomegaly, or ascites noted. EXTREMITIES - No clubbing or peripheral cyanosis.+5/5 strength noted in UE/LE bilaterally. NEUROLOGIC - Cranial nerves II through XII grossly intact. PSYCH -alert, oriented and pleasant on exam Course Administered Medications Discontinued Medications Sodium Chloride (Nss) 1,000 mls @ 500 mls/hr IV .Q2H ONE Stop: 07/26/24 16:22 Last Infusion: 07/26/24 17:17 Dose: Infused Documented By: Admin: 07/26/24 14:26 Dose: 500 mls/hr Documented By: ZAC Cefepime HCl (Maxipime 2000mg) 2,000 mg in 20 mls @ 5 mls/min IV NOW STA; Protocol Stop: 07/26/24 15:06 Last Admin: 07/26/24 15:50 Dose: 5 mls/min Documented By: DILIP Ioversol (Optiray 320 100ml) 94 ml IV ONCE ONE Stop: 07/26/24 14:45 Last Admin: 07/26/24 14:44 Dose: 94 ml Documented By: SAPPHIRE Ondansetron HCl (Ondansetron Inj 2 Mg/Ml 2 Ml Vial) 4 mg IV NOW STA Stop: 07/26/24 14:16 Last Admin: 07/26/24 14:26 Dose: 4 mg Documented By: ZAC Medical Decision Making Laboratory Data 07/26/24 11:58 07/26/24 11:58 Lab Results 07/26/24 07/26/24 07/26/24 Range/Units 11:52 11:58 13:59 WBC 6.67 (4.8-10.8) K/ul RBC 5.14 (4.20-5.40) M/uL Hgb 15.5 (12.0-16.0) g/dl Hct 46.4 (37.0-47.0) % MCV 90.3 (80.0-100.0) fL MCH 30.2 (25.0-34.0) pg MCHC 33.4 (32.0-36.0) g/dL RDW Std Deviation 47.4 H (36.4-46.3) fL RDW Coeff of Ranulfo 14.3 (11.5-14.5) % Plt Count 211 (130-400) K/uL MPV 9.9 (9.4-12.4) fL Immature Gran % (Auto) 1.0 % Neut % (Auto) 67.3 % Lymph % (Auto) 11.7 % Richardson % (Auto) 12.7 % Eos % (Auto) 6.6 % Baso % (Auto) 0.7 % Neut # (Auto) 4.48 (1.40-6.50) K/uL Lymph # (Auto) 0.78 L (1.20-3.40) K/uL Richardson # (Auto) 0.85 H (0.11-0.59) K/uL Eos # (Auto) 0.44 (0.00-0.50) K/uL Baso # (Auto) 0.05 (0.00-0.20) K/uL Immature Gran # (Auto) 0.07 (0.01-0.20) K/uL Sodium 138 (136-145) mmol/L Potassium 4.4 (3.5-5.1) mmol/L Chloride 107 (98-107) mmol/L Carbon Dioxide 23 (21-32) mmol/L Anion Gap 8 (3-11) BUN 25 H (6-23) mg/dl Creatinine 0.97 (0.6-1.2) mg/dl Est Cr Clr Drug Dosing Not Reportable eGFR 59.44 BUN/Creatinine Ratio 25.8 H (10-20) Glucose 110 H (70-99(Fasting)) mg/dl Lactate (0.4-2.0) mmol/L Calcium 9.6 (8.6-10.3) mg/dl Magnesium 2.1 (1.7-2.4) mg/dl Total Bilirubin 0.9 (0.2-1.0) mg/dl AST 23 (13-39) U/L ALT 30 (7-52) U/L Alkaline Phosphatase 73 (34-104) U/L Troponin I High Sens 2.5 (0-14) pg/ml Total Protein 7.3 (6.0-8.3) gm/dl Albumin 4.3 (3.4-5.0) gm/dl Globulin 3.0 (2.5-4.0) gm/dl Albumin/Globulin Ratio 1.4 (0.9-2) Procalcitonin 0.03 (0-0.5) ng/ml Urine Color Yellow Urine Appearance Clear (Clear) Urine pH 5.5 (4.5-7.5) Ur Specific [place] 1.010 (1.000-1.030) Urine Protein Negative (Negative) Urine Glucose (UA) Negative (Negative) Urine Ketones Negative (Negative) Urine Blood Negative (Negative) Urine Nitrite Negative (Negative) Urine Bilirubin Negative (Negative) Urine Urobilinogen Negative (Negative) Ur Leukocyte Esterase Negative (Negative) SARS-CoV-2 (PCR) NEGATIVE (Negative) Influenza Type A (PCR) Negative (Neg) Influenza Type B (PCR) Negative (Neg) RSV (RT-PCR) Negative (Neg) 07/26/24 07/26/24 Range/Units 14:55 17:05 WBC (4.8-10.8) K/ul RBC (4.20-5.40) M/uL Hgb (12.0-16.0) g/dl Hct (37.0-47.0) % MCV (80.0-100.0) fL MCH (25.0-34.0) pg MCHC (32.0-36.0) g/dL RDW Std Deviation (36.4-46.3) fL RDW Coeff of Ranulfo (11.5-14.5) % Plt Count (130-400) K/uL MPV (9.4-12.4) fL Immature Gran % (Auto) % Neut % (Auto) % Lymph % (Auto) % Richardson % (Auto) % Eos % (Auto) % Baso % (Auto) % Neut # (Auto) (1.40-6.50) K/uL Lymph # (Auto) (1.20-3.40) K/uL Richardson # (Auto) (0.11-0.59) K/uL Eos # (Auto) (0.00-0.50) K/uL Baso # (Auto) (0.00-0.20) K/uL Immature Gran # (Auto) (0.01-0.20) K/uL Sodium (136-145) mmol/L Potassium (3.5-5.1) mmol/L Chloride (98-107) mmol/L Carbon Dioxide (21-32) mmol/L Anion Gap (3-11) BUN (6-23) mg/dl Creatinine (0.6-1.2) mg/dl Est Cr Clr Drug Dosing eGFR BUN/Creatinine Ratio (10-20) Glucose (70-99(Fasting)) mg/dl Lactate 2.7 H* 1.5 (0.4-2.0) mmol/L Calcium (8.6-10.3) mg/dl Magnesium (1.7-2.4) mg/dl Total Bilirubin (0.2-1.0) mg/dl AST (13-39) U/L ALT (7-52) U/L Alkaline Phosphatase (34-104) U/L Troponin I High Sens (0-14) pg/ml Total Protein (6.0-8.3) gm/dl Albumin (3.4-5.0) gm/dl Globulin (2.5-4.0) gm/dl Albumin/Globulin Ratio (0.9-2) Procalcitonin (0-0.5) ng/ml Urine Color Urine Appearance (Clear) Urine pH (4.5-7.5) Ur Specific [place] (1.000-1.030) Urine Protein (Negative) Urine Glucose (UA) (Negative) Urine Ketones (Negative) Urine Blood (Negative) Urine Nitrite (Negative) Urine Bilirubin (Negative) Urine Urobilinogen (Negative) Ur Leukocyte Esterase (Negative) SARS-CoV-2 (PCR) (Negative) Influenza Type A (PCR) (Neg) Influenza Type B (PCR) (Neg) RSV (RT-PCR) (Neg) Imaging Data Radiologist's Impression: Chest X-Ray 07/26/24 14:13 XR chest 1V portable CLINICAL HISTORY: dyspnea COMPARISON STUDY: 07/02/2024 FINDINGS: Heart size and pulmonary vasculature are normal. No effusion, consolidation, or pneumothorax seen. Stable mild scarring in the lung bases. Stable calcified mediastinal and hilar lymph nodes. IMPRESSION: No acute findings. ACT 112: Negative or not required by law. Electronically signed by: Deonte Gary M.D. 07/26/2024 2:29 PM Abdomen/Pelvis CT 07/26/24 14:[address] WITH IV CONTRAST CT DOSE: 1351.64 mGy.cm HISTORY: Acute nausea with urinary tract infection nausea, recent UTI w/ continued symptoms TECHNIQUE: Multiaxial CT images of the abdomen and pelvis were performed following the IV administration of 94 cc of Optiray, A dose lowering technique was utilized adhering to the principles of ALARA. COMPARISON STUDY: Chest CT 01/03/2021 FINDINGS: Moderate coronary artery calcifications. Calcified pulmonary granulomata with calcified mediastinal lymph nodes compatible with prior granulomatous disease. Bibasilar atelectasis/scarring with interlobular septal thickening. There is no pneumatosis or pneumoperitoneum. 4.7 x 3.7 cm peripherally calcified indeterminate splenic lesion, likely benign. Unremarkable pancreas and adrenal glands. Cholecystectomy. The liver is within normal limits. Patent portal vein. Multifocal scarring with parenchymal thinning noted within the right kidney. 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 Several subcentimeter hypodense foci of the left kidney are too small to characterize. Decompressed urinary bladder. Hysterectomy. Atherosclerosis of the aorta branch vessels. There are no pathologically enlarged lymph nodes identified. Extensive colonic diverticulosis without acute diverticulitis. No bowel obstruction or bowel wall thickening. Moderate colonic fecal retention. Appendix not visualized. Degenerative changes of the spine, pelvis and hips. Lumbar levoscoliosis. Grade 1 anterolisthesis L4 on L5 is likely on a degenerative basis. Small fat filled umbilical hernia. IMPRESSION: 1. No acute intra-abdominal or intrapelvic abnormality. 2. No bowel obstruction or bowel wall thickening. 3. Extensive colonic diverticulosis without acute diverticulitis. 4. Chronic findings as above. ACT 112: Negative or not required by law. The above report was generated using voice recognition software. It may contain grammatical, syntax or spelling errors. Electronically signed by: Jonah Baldwin M.D. 07/26/2024 2:59 PM [facility] Narrative Patient was seen and evaluated as above in room A11b. Review was performed of triage nursing notes and vital signs. I did review pertinent previous visits and patient history. After obtaining a thorough history and physical examination the above work up was performed. Patient presents to us today with progressive symptoms over the past several weeks of chills/shakes, dizziness, nausea/vomiting and overall feeling unwell. She appears clinically ill on examination and with some mild tachypnea. She looks clinically dry as well. Options of care were discussed with the patient. IV access was established. Labs are drawn. IV fluids ordered for hydration, IV Zofran for nausea.Labs reveal no leukocytosis or concerning anemia. Mild elevation of BUN at 25 consistent with her dehydrated state. No evidence of kidney or liver failure. Mild hyperglycemia 110. Procalcitonin within normal range. Troponin within normal range. Urinalysis does not suggest infection. COVID, flu, RSV testing negative. EKG per my interpretation reveals normal sinus rhythm at a rate of 74 bpm. QTc of 450. QRS 92. No ST elevation on this rhythm tracing. Chest x-ray performed per my interpretation was negative for acute process. CT scan abdomen/pelvis overall negative for acute process. Per review of the EMR patient urinalysis dated 07/02/2024 resulted with greater than 100,000 CFU per mL E. coli that was pansensitive other than resistant to gentamicin. Patient was placed on oral cefdinir. She completed this course x 1 week. Patient followed up with PCP and had repeat urinalysis on 07/11/2024. E. coli was no longer present however this new sample was growing Pseudomonas aeruginosa 60,000 CFU per mL. This was pansensitive. Patient was extended on oral cefdinir. Patient notes that her symptoms continue. She is here today worried about progressive infection. Per review of the urine sensitivity dated 07/11/2024 noting the Pseudomonas aeruginosa, very few oral options are available. Given the patient's progressive and ongoing symptoms we will proceed with IV antibiotics. IV cefepime ordered is included within the sensitivities. Blood culture currently pending. Lactate elevated, fluids ordered but will note the patient is not tachycardic nor is she hypotensive therefore do not believe she requires 30 mL/kg. I do believe that further evaluation and management the inpatient setting is warranted. Please refer to further documentation regarding her stay. GCS: 15 In the evaluation and treatment of this patient the following differential diagnoses were entertained: UTI, pyelonephritis, bowel obstruction, kidney stone, bacteremia, sepsis, among others Impression & Plan Dizziness, Nausea & vomiting, Recent urinary tract infection Discharge Plan Visit Data Chief Complaint: Illness Stated Complaint: DIZZY, LIGHTHEADED, VOMITING ED Provider: Edwige Godfrey ED Midlevel Provider: Ghassan Torres Discharge Problem: Dizziness, Nausea & vomiting, Recent urinary tract infection Patient Disposition: Admitted As Inpatient Condition: Good Forms Stand Alone Forms: My [facility], Important Visit Information Prescriptions Prescriptions: No Action lisinopril 20 mg tablet 20 mg PO DAILY Qty: 90 3RF furosemide [Lasix] 20 mg tablet 20 mg PO DAILY PRN (Reason: edema) Qty: 90 1RF fluticasone propion-salmeterol [Advair Diskus] 250-50 mcg/dose blister with device 1 inh inhalation BID Qty: 60 5RF doxycycline hyclate 100 mg capsule 100 mg PO DAILY Qty: 30 1RF Rx Instructions: filled 07/25 for 30 day supply azelastine 137 mcg (0.1 %) spray,non-aerosol 2 spray intranasal BID Qty: 30 11RF Rx Instructions: administer into each nostril zinc acetate 50 mg (zinc) capsule 50 mg PO DAILY Rx Instructions: 07/26-OTC unable to verify selenium 200 mcg capsule 200 mcg PO DAILY Rx Instructions: 07/26-OTC unable to verify omega-3 fatty acids [Fish Oil Concentrate] 1,000 mg capsule 1,000 mg PO DAILY Rx Instructions: 07/26-OTC unable to verify ascorbic acid (vitamin C) 1,000 mg tablet 1 gm PO DAILY Rx Instructions: 07/26-OTC unable to verify cholecalciferol (vitamin D3) 5,000 unit capsule 5,000 units PO DAILY Rx Instructions: 07/26-OTC unable to verify aspirin 500 mg Tablet 500 mg PO DAILY Rx Instructions: 07/26-OTC unable to verify cyanocobalamin (vitamin B-12) [Vitamin B-12] 1,000 mcg Tablet 1,000 mcg PO DAILY Rx Instructions: 07/26-OTC unable to verify vitamin E 800 unit Capsule 800 unit PO DAILY Rx Instructions: 07/26-OTC unable to verify coQ10 (ubiquinol) 200 mg Capsule 200 mg PO DAILY Rx Instructions: 07/26-OTC unable to verify albuterol sulfate 90 mcg/actuation HFA aerosol inhaler 2 puff inhalation UD PRN (Reason: shortness of breath or wheezing) Rx Instructions: 07/26- 2 puff q6h prn. no fill history unable to verify Referrals Referrals: Nimo Gore MD [Primary Care Provider] -
[2024-07-26] MEDS: ONDANSETRON INJ 2 MG/ML 2 ML VIAL IV STA (14:26)
[2024-07-26] MEDS: SODIUM CHLORIDE 0.9% 1,000 ML IV ONE (14:26)
--- NOTE | 2024-07-26 14:31 | XRay Report ---
XR chest 1V portable CLINICAL HISTORY: dyspnea COMPARISON STUDY: 07/02/2024 FINDINGS: Heart size and pulmonary vasculature are normal. No effusion, consolidation, or pneumothora x seen. Stable mild scarring in the lung bases. Stable calcified mediastinal and hilar lymph nodes. IMPRESSION: No acute findings. ACT 112: Negative or not required by law. Electronically signed by: Deonte Gary M.D. 07/26/2024 2:29 PM
[2024-07-26] MEDS: OPTIRAY 320 100ml IV ONE (14:44)
[2024-07-26 14:47] LABS: Influenza A virus by PCR Negative (Neg); Influenza B virus by PCR Negative (Neg); RSV by PCR Negative (Neg); SARS CoV2 RNA(COVID-19) Ceph NEGATIVE (Negative)
--- NOTE | 2024-07-26 15:01 | CT Scan Report ---
ABDOMEN AND PELVIS CT WITH IV CONTRAST CT DOSE: 1351.64 mGy.cm HISTORY: Acute nausea with urinary tract infection nausea, recent UTI w/ continued symptoms TECHNIQUE: Multiaxial CT images of the abdomen and pelvis were performed following the IV administrat ion of 94 cc of Optiray, A dose lowering technique was utilized adhering to the principles of ALARA. COMPARISON STUDY: Chest CT 01/03/2021 FINDINGS: Moderate coronary artery calcifications. Calcified pulmonary granulomata with calcified med iastinal lymph nodes compatible with prior granulomatous disease. Bibasilar atelectasis/scarring with interlobular septal thickening. There is no pneumatosis or pneumoperitoneum. 4.7 x 3.7 cm peripherally calcified indeterminate spleni c lesion, likely benign. Unremarkable pancreas and adrenal glands. Cholecystectomy. The liver is with in normal limits. Patent portal vein. Multifocal scarring with parenchymal thinning noted within the right kidney. 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 Several subcentimeter hypodense foci of the left kidne y are too small to characterize. Decompressed urinary bladder. Hysterectomy. Atherosclerosis of the a chandana branch vessels. There are no pathologically enlarged lymph nodes identified. Extensive colonic diverticulosis without acute diverticulitis. No bowel obstruction or bowel wall thi ckening. Moderate colonic fecal retention. Appendix not visualized. Degenerative changes of the spine , pelvis and hips. Lumbar levoscoliosis. Grade 1 anterolisthesis L4 on L5 is likely on a degenerative basis. Small fat filled umbilical hernia. IMPRESSION: 1. No acute intra-abdominal or intrapelvic abnormality. 2. No bowel obstruction or bowel wall thickening. 3. Extensive colonic diverticulosis without acute diverticulitis. 4. Chronic findings as above. ACT 112: Negative or not required by law. The above report was generated using voice recognition software. It may contain grammatical, syntax o r spelling errors. Electronically signed by: Jonah Baldwin M.D. 07/26/2024 2:59 PM
--- NOTE | 2024-07-26 15:48 | Electrocardiogram Report ---
Test Reason : Blood Pressure : */* mmHG Vent. Rate : 74 BPM Atrial Rate : 74 BPM P-R Int : 182 ms QRS Dur : 92 ms QT Int : 406 ms P-R-T Axes : 18 -41 41 degrees QTcB Int : 450 ms Normal sinus rhythm with sinus arrhythmia Left axis deviation Incomplete right bundle branch block Abnormal ECG When compared with ECG of 02-Jul-2024 13:35, Premature atrial complexes are no longer Present Confirmed by Cal Diane ([id number]) on 07/26/2024 3:48:16 PM Referred By: Confirmed By: Cal Diane
[2024-07-26] MEDS: CEFEPIME 2000MG 2,000 MG/20 ML SYR IV STA (15:50)
[2024-07-26] MEDS ORDERED: POLYETHYLENE (MIRALAX) 17 GM PACK PO PRN (16:12)
[2024-07-26] MEDS ORDERED: ACETAMINOPHEN 325 MG TAB PO PRN (16:12)
--- NOTE | 2024-07-26 16:31 | History & Physical Report ---
Date of Service July 26, 2024 Assessment & Plan (1) UTI (urinary tract infection): (2) Weakness: (3) Lyme disease: (4) HTN (hypertension): (5) Sarcoidosis: Plan This is a 78 year old female with past medical history of sarcodiosis, chronic lyme disease who presents to the hospital on 07/26 with chief complaint of illness. Patient w/ recent UTI diagnosed on 07/02 in ED - pansensitive E coli. She was then treated with Cefdinir. Patient then had a repeat urine culture outpatient on 07/11 that was positive for pseudomonas. She was given an extended course of Cefdinir. Patient refused Ciprofloxacin in the ED. #UTI Urinalysis negative, sent urine culture to confirm pseudomonas infection. Urine culture & blood culture pending CTAP negative, CXR negative. CBC w/o leukocytosis, hgb stable. BMP w/ stable renal function and electrolytes. Lactate elevated at 2.7, repeat pending. Troponin and procalcitonin both WNL. Continue IV Cefepime q12h #Weakness/Dizziness Likely secondary to UTI. Patient lives alone in [address] [facility]. Check orthostatic vitals. PT/OT consulted, appreciate recommendations. #Chronic Lyme Disease Continue Doxycycline daily Chronic conditions: Sarcoidosis: refuses chest CT outpatient per pcp note. Continue inhalers HTN: Lisinopril Venous insufficiency: hold Lasix. DVT prophylaxis: Lovenox Code: full Case discussed w/ Dr. Leigh at time of admission. History of Present Illness Primary Care Provider: Nimo Gore MD This is a 78 year old female with past medical history of sarcodiosis, chronic lyme disease who presents to the hospital on 07/26 with chief complaint of illness. Patient was seen and examined w/ family member at bedside. Patient recently came to the ED on 07/02 and was diagnosed with pansensitive E coli UTI. She was treated with Cefdinir. Following this, she had an outpatient urine culture that grew pseudomonas and her course of cefdinir was continued. Recently, she has not felt well. She feels weak, occasionally light headed, and nauseous. Denies any recent vomiting. Reports her bowel movements are normal. She does report urinary frequency but denies burning or hematuria. Denies any abdominal pain. She has low back pain which is chronic for her. She follows w/ a chiropractor for her back issues. She reports she has been on chronic doxycycline for awhile secondary to chronic lyme disease. She denies chest pain, shortness of breath, or lower extremity edema. She reports when she did have the UTI she had worsened edema. She uses prn lasix for her venous insufficiency. Patient also reports that she "feels like she is being poisoned". While in the ED, patient had a negative urinalysis. CBC w/o leukocytosis. BMP stable. Lactate elevated at 2.7. UC and BC pending. CTAP was negative. CXR negative. She was given IV fluids, IV Zofran, and IV Cefepime. Code discussion took place with patient and she is a full code. Allergies Allergy/AdvReac Type Severity Reaction Status Date / Time house dust mite Allergy Mild Sneezing Verified 07/05/24 14:08 mold Allergy Mild Sneezing Verified 07/05/24 14:08 Home Medications Medication Instructions Recorded Confirmed Type ascorbic acid (vitamin C) 1,000 mg 1 gm PO DAILY 09/14/18 07/26/24 History tablet cholecalciferol (vitamin D3) 125 5,000 units PO DAILY 09/14/18 07/26/24 History mcg (5,000 unit) capsule omega-3 fatty acids 1,000 mg 1,000 mg PO DAILY 10/27/18 07/26/24 History capsule (Fish Oil Concentrate) selenium 200 mcg capsule 200 mcg PO DAILY 10/27/18 07/26/24 History zinc acetate 50 mg (zinc) capsule 50 mg PO DAILY 10/27/18 07/26/24 History aspirin 500 mg tablet 500 mg PO DAILY 03/23/19 07/26/24 History coQ10 (ubiquinol) 200 mg capsule 200 mg PO DAILY 01/31/21 07/26/24 History cyanocobalamin (vitamin B-12) 1,000 mcg PO DAILY 01/31/21 07/26/24 History 1,000 mcg tablet (Vitamin B-12) vitamin E 800 unit capsule 800 unit PO DAILY 01/31/21 07/26/24 History lisinopril 20 mg tablet 20 mg PO DAILY #90 tabs 03/25/24 07/26/24 Rx furosemide 20 mg tablet (Lasix) 20 mg PO DAILY PRN edema #90 tabs 03/29/24 07/26/24 Rx fluticasone 250 mcg-salmeterol 50 1 inh inhalation BID #60 ea 05/23/24 07/26/24 Rx mcg/dose blistr powdr for inhalation (Advair Diskus) doxycycline hyclate 100 mg capsule 100 mg PO DAILY #30 caps 07/25/24 07/26/24 Rx albuterol sulfate 90 mcg/actuation 2 puff inhalation UD PRN shortness 07/26/24 07/26/24 History aerosol inhaler of breath or wheezing azelastine 137 mcg (0.1 %) nasal 2 spray intranasal BID #30 mL 07/26/24 07/26/24 Rx spray Past Med/Surg History Problem List (Updated 07/26/24 @ 18:15 by Ghassan Torres PA-C) Recent urinary tract infection (Acute) Nausea & vomiting (Acute) Dizziness (Acute) Impaired fasting glucose (Chronic) Multiple pulmonary nodules determined by computed tomography of lung (Chronic) Sarcoidosis (Chronic) HTN (hypertension) (Chronic) Medical History Squamous cell skin cancer, face Lyme disease Surgical History History of cholecystectomy [place] teeth extracted History of hysterectomy History of ovarian cystectomy Family History Mother Breast cancer Other Cancer Colon cancer Diabetes Heart disease Hypertension Denies family history of Tuberculosis Ovarian cancer Prostate cancer Myocardial infarction Emphysema, unspecified Lung disease Asthma Social History Smoking Status: Never smoker Second Hand Exposure: No; Do You Dip or Chew Tobacco: No; Hx Alcohol Use: No Hx Substance Use: No Preferred Language: Cymro Communication Ability: Effective Visual Impairment: No Limitations Hearing Ability: Normal Armored Car Driver Required: No Beliefs That Will Affect Care: None marital status: ivorced Current Living Situation: Alone Current Living Situation Comment: cares for self current occupational status: employed How many Children do You have: 1 Feels Safe at Home: Yes Safety Concerns: Feels Safe At This Time Dental Care, Regularly: No Physical Activity Frequency: Daily Seatbelt Use: always Assistive Devices: Cane Physical Exam Constitutional: WD/WN, vitals as above Eyes: PERRL, conjunctivae normal, anicteric sclerae Respiratory: normal respiratory effort, lungs clear to auscultation Cardiovascular: RRR, no murmur, no edema Gastrointestinal (Abdomen): normal bowel sounds, soft, nontender, no hepatosplenomegaly Neurologic: PERRL, EOMI, accommodation nl, no face palsy, no dysarthria Psychiatric: A+Ox3, euthymic affect Results & Data Results & Data Vital Signs (Past 12 Hours) Vital Signs Temp Pulse Pulse Resp BP BP Pulse Ox 07/26/24 15:51 73 24 151/85 H 97 07/26/24 14:26 73 07/26/24 14:18 87 22 146/94 H 99 07/26/24 11:44 36.4 C L 83 26 H 171/100 H 99 O2 Del Method 07/26/24 15:51 Room Air 07/26/24 14:26 07/26/24 14:18 Room Air 07/26/24 11:44 Room Air Supervising Physician Co-Signing Physician Notes Attending Attestation & Admit Note: Pt seen/examined, chart reviewed, admit care plan d/w KINZA Torres. I agree w/ the blum components her admit documentation. 78yo female with remote h/o sarcoid (in remission - took prednisone for some period of time in the late ), chronic Lyme disease on doxycycline daily, and obstructive lung disease (as seen on PFTs 2020) presents with several months of generalized weakness, episodes of nausea, and simply feeling unwell. Most recently had e.coli UTI treated with omnicef in late June 2024. Of note - her weakness/fatigue/nausea/etc pre-date the UTI by several months. Denies fevers, but does have sweats at times. No vomiting despite the nausea. No abd pain. Does have chronic FUENTES but none at rest. Previously followed with pulmonary several years ago for her h/o sarcoid. Last office visit with pulmonary was 2020. Patient mentioned that sometimes she will walk into a store, then people around her will have to assist her out of the store because of the weakness. No exertional chest pain. Pt does mention her brother from [place] in his early 50s. Father from cardiac disease during a GI surgery. PMH/PSH/allergies/meds/sochx/famhx - reviewed VSS, afebrile gen - obese, NAD, nontoxic eyes - PERRL skin - no rash mouth - MMM neck - no JVD, no lymph nodes CV - RRR, s1 s2, no murmur lungs - CTA b/l - no rales or wheeze abd - soft NT ND BS+; no HSM ext - pulses b/l feet 2+, no edema neuro - strength 5/5 x 4 exts musculo - no joint synovitis large/small joints upper & lower exts labs reviewed imaging reviewed; incidentally her CT showed moderate coronary artery calcifications EKG - NSR, IRBBB, left axis deviation, no ST changes A/P: 1. generalized weakness, nausea, etc for several months 2. recent e.coli UTI - u/a today completely normal 3. coronary artery calcifications on CT 4. remote h/o sarcoid 5. chronic lyme disease on doxycycline 6. obstructive lung disease 7. morbid obesity BMI 45 #1 -- check B12, B1, Fe studies, CPK, sed rate, crp, cortisol; if all are negative/normal -- consider echo and/or stress test - r/o CAD as cause of symptoms given her family history as well as coronary calcifications on CT nausea -- 2nd to chronic doxycycline causing GI upset/esophagitis?? of note - recent TSH was wnl #2 -- would not retreat with abx; u/a completely normal; recent pseudomonas probably asymptomatic bacteriuria and most of her symptoms are several months in duration pre-dating the UTIs #4 -- if above w/u is negative consider sarcoid work-up -- CT chest, 1,25-OH vit D level, etc. Mendel Leigh MD PG Care Time/CCT Total # of Minutes Spent Total Time Spent with Patient: Total time spent is greater than 50% in coordination of care (as documented) at patient's floor/unit and/or counseling patient: Coding Level of Care Code 37957 INT INP/OBS CARE 3/75MIN Diagnoses UTI (urinary tract infection) N39.0 Weakness R53.1 Lyme disease A69.20 HTN (hypertension) I10 Sarcoidosis D86.9
--- NOTE | 2024-07-26 17:20 | Emergency Department Note ---
ED Visit Note I was consulted by Ghassan Torres PA-C. I personally made/approved the management plan and take responsibility for the patient management. I performed a substantive portion of the visit. This includes the aspects of laboratory review, Chest x-ray and abdominal CT review. Patient required hospitalization for intractable symptoms, failed outpatient treatment of pseudomonas UTI. She was placed on cefepime 2 g IV. Hospitalist service was contacted for admission. Please refer to Ghassan Torres PA-C's notes for further details of the history, ph ysical and visit. .
[2024-07-26] MEDS: ENOXAPARIN INJ 40 MG/0.4 ML SYR SQ SCH (20:35)
[2024-07-26] MEDS ORDERED: ALBUTEROL HFA 8 GM INHALER INH PRN (21:05)
[2024-07-26] MEDS: AZELASTINE HCL 0.1% NASAL 200 SPRAYS/27,400 MCG BTL NAE SCH (21:36)
[2024-07-27] MEDS: CEFEPIME 2000MG 2,000 MG/20 ML SYR IV SCH (03:14)
[2024-07-27] MEDS: ONDANSETRON INJ 2 MG/ML 2 ML VIAL IV PRN (03:16)
[2024-07-27] MEDS: ONDANSETRON INJ 2 MG/ML 2 ML VIAL IV STA (06:48)
[2024-07-27 07:27] LABS: Hematocrit (blood only) 43.5 % (37.0-47.0); Hemoglobin 14.3 g/dl (12.0-16.0); Mean Corpuscular Hemoglobin 30.4 pg (25.0-34.0); Mean Corpuscular Hgb Conc 32.9 g/dL (32.0-36.0); Mean Corpuscular Volume 92.4 fL (80.0-100.0); Mean Platelet Volume 9.9 fL (9.4-12.4); Platelet Count 173 K/uL (130-400); RDW Coefficient of Variation 14.6 % (11.5-14.5); RDW Standard Deviation 49.8 fL (36.4-46.3); Red Blood Count 4.71 M/uL (4.20-5.40); White Blood Count 6.41 K/ul (4.8-10.8)
[2024-07-27 07:58] LABS: Cortisol AM 13.7 mcg/dl (6.2-22.6)
[2024-07-27 08:06] LABS: Anion Gap 6 (3-11); Calcium 9.2 mg/dl (8.6-10.3); Carbon Dioxide 23 mmol/L (21-32); Chloride 110 mmol/L (98-107); Potassium 4.4 mmol/L (3.5-5.1); Sodium 139 mmol/L (136-145)
[2024-07-27 08:08] LABS: Ferritin 103.6 ng/ml (8-388)
[2024-07-27 08:12] LABS: BUN Creatinine Ratio 21.8 (10-20); Blood Urea Nitrogen 19 mg/dl (6-23); C Reactive Protein < 0.50 mg/dl (0-0.5); Creatine Kinase 47 U/L (26-192); Creatinine Clr Calc Pharmacy 64.4 ml/min; Glucose 104 mg/dl (70-99(Fasting)); Iron 86 mcg/dl (35-150); Total Iron Binding Cap Calc 412 mcg/dl (250-450); Transferrin 294 mg/dl (200-360); Transferrin (FE) Percent Satur 21 % (15-50)
[2024-07-27] MEDS: ASCORBIC ACID 500 MG TAB PO SCH (09:24)
[2024-07-27] MEDS: CHOLECALCIFEROL 125 MCG (5,000 UNITS) TAB PO SCH (09:25)
[2024-07-27] MEDS: DOXYCYCLINE HYCLATE 100 MG CAP PO SCH (09:25)
[2024-07-27] MEDS: lisinopril 20 MG TAB PO SCH (09:25)
[2024-07-27] MEDS: FLUTICASONE/VILANTEROL 100/25MCG 14 PUFFS/INHALER INH SCH (09:26)
[2024-07-27 11:27] VITALS: RESP 19; TEMP 97.3; O2SAT 93
[2024-07-27] MEDS: FLUTICASONE/SALMETEROL 250/50 (ADVAIR) 14 PUFF/1 INHALER INH SCH (11:55)
[2024-07-27] MEDS: LORazepam 2 MG/1 ML VIAL IV ONE (12:50)
[2024-07-27] MEDS: OPTIRAY 320 100ml IV ONE (13:42)
--- NOTE | 2024-07-27 13:59 | CT Scan Report ---
CT chest diagnostic wo/w con CLINICAL HISTORY: dyspnea on exertion, hx sarcoidosis COMPARISON STUDY: 01/03/2021 FINDINGS: Stable calcified mediastinal and hilar lymph nodes and a few scattered calcified pulmonary granuloma consistent with given history of sarcoid. There is an 8 mm nodule posterior right middle lo be series 4 image 143, mildly increased in size. Otherwise the bilateral pulmonary nodules are stable , largest posterior right upper lobe measuring 9 mm series 4 image 94, stable. There are stable retic ular, bandlike, and groundglass opacities at the mid and lower lungs, most prominent in the lung base s. No lobar consolidation or pleural effusion. No pneumothorax. No pericardial effusion. There are mo derate coronary artery and aortic calcifications. Ascending thoracic aorta measures 4.7 cm diameter, mildly aneurysmal and stable and narrows smoothly to normal caliber of 2.6 cm at the proximal descend ing thoracic aorta. Stable mild prominence of the main pulmonary artery. Stable mild atrophy of the p artially visualized right kidney. Splenic cyst with peripheral calcification and internal milk of andry cium measures 5 cm, stable. There are diffuse thoracic spine degenerative changes. There is mild scol iosis. IMPRESSION: 1. No acute lobar pneumonia or pleural effusion. 2. Findings of sarcoid again seen. There is an 8 mm nodule posterior right middle lobe which is mildl y increased in size. Otherwise the pulmonary nodules and pulmonary reticular and groundglass opacitie s are stable. 3. Recommend follow-up chest CT in 6 months. ACT 112: Positive. There are findings on this exam that require communication between the performing entity and the patient following Patient Test Result Information Act ([place] Act 112) guidelines. Electronically signed by: Deonte Gary M.D. 07/27/2024 1:57 PM
--- NOTE | 2024-07-27 15:50 | Discharge Summary ---
Discharge Summary Date of Service July 27, 2024 Principal Dx & Hospital Course #1 = Principal Diagnosis (1) UTI (urinary tract infection): (2) Weakness: (3) HTN (hypertension): (4) Sarcoidosis: Plan This is a 78 year old female with past medical history of sarcodiosis, chronic lyme disease who presents to the hospital on 07/26 with chief complaint of illness. Patient w/ recent UTI diagnosed on 07/02 in ED - pansensitive E coli. She was then treated with Cefdinir. Patient then had a repeat urine culture outpatient on 07/11 that was positive for pseudomonas. She was given an extended course of Cefdinir. Patient refused Ciprofloxacin in the ED. #UTI Urinalysis negative, BC negative at 24 hour ines. CTAP negative, CXR negative. CBC w/o leukocytosis, hgb stable. BMP w/ stable renal function and electrolytes. Lactate elevated at 2.7, repeat 1.5 Troponin and procalcitonin both WNL. Cefepime q12h inpatient--> levofloxacin once daily for the next two days to complete 3 day course for uncomplicated UTI. (Patient was agreeable to Levofloxacin after discussion of antibiotics) #Weakness/Dizziness Likely secondary to UTI, feels improved today, 07/27. Patient lives alone in [address] [facility] [address]. Check orthostatic vitals. -> negative PT/OT consulted -> recommending home w/o services Chest CT -> no acute lobar pneumonia/pleural effusion. Findings of sarcoid seen again. 8mm nodule posterior right middle lobe which is mildly increased in size. Otherwise pulmonary nodules & pulmonary reticular/groundglass opacities stable. follow up CT in 6 months Weakness could be secondary to hypoxia, patient was 85% on room air after activity which improved to 90% when rested - discussed w/ patient 2 step and home oxygen, she refused. Encourage to follow up with PCP and re-establish w/ Pulmonology. Consider pulmonolary rehab. #Chronic Lyme Disease Continue Doxycycline daily Chronic conditions: Sarcoidosis: Continue inhalers HTN: Lisinopril Venous insufficiency: hold Lasix. Morbid obesity, BMI 45.2 kg/m*m Patient discharged home 07/27. Admission HPI Per Admitting Provider This is a 78 year old female with past medical history of sarcodiosis, chronic lyme disease who presents to the hospital on 07/26 with chief complaint of illness. Patient was seen and examined w/ family member at bedside. Patient recently came to the ED on 07/02 and was diagnosed with pansensitive E coli UTI. She was treated with Cefdinir. Following this, she had an outpatient urine culture that grew pseudomonas and her course of cefdinir was continued. Recently, she has not felt well. She feels weak, occasionally light headed, and nauseous. Denies any recent vomiting. Reports her bowel movements are normal. She does report urinary frequency but denies burning or hematuria. Denies any abdominal pain. She has low back pain which is chronic for her. She follows w/ a chiropractor for her back issues. She reports she has been on chronic doxycycline for awhile secondary to chronic lyme disease. She denies chest pain, shortness of breath, or lower extremity edema. She reports when she did have the UTI she had worsened edema. She uses prn lasix for her venous insufficiency. Patient also reports that she "feels like she is being poisoned". While in the ED, patient had a negative urinalysis. CBC w/o leukocytosis. BMP stable. Lactate elevated at 2.7. UC and BC pending. CTAP was negative. CXR negative. She was given IV fluids, IV Zofran, and IV Cefepime. Code discussion took place with patient and she is a full code. Discharge Exam Constitutional WD/WN, vitals as above Eyes PERRL, conjunctivae normal, anicteric sclerae Respiratory breathing unlabored Cardiovascular well perfused Psychiatric A+Ox3, euthymic affect Discharge Plan Discharge Items Patient Disposition: Home - Self-Care Reason For Visit: UTI Discharge Diagnosis: UTI, weakness Condition on Discharge: Good Activity: Resume your previous activity Non-emergency contact: Primary Care Provider Call non-emergency contact if: you have any medication questions and your symptoms worsen Follow-up/Referrals: Nimo Gore MD [Primary Care Provider] - 08/09/24 2:00 pm Diet: Regular Addtl Attending Provider Instructions: Ms. Dodd, You were recently hospitalized for ongoing weakness and a UTI. You underwent a workup including labs and imaging that was essentially normal. Your sarcoidosis is unchanged from 2020. Please see recommendations below regarding discharge. Please take Levofloxacin for the next two days starting 07/28. Please take with food to avoid GI upset. Please follow up with the lung doctor outpatient, we will place a new referral for you. Please follow up with your PCP within 1-2 weeks for further management. You may resume the remainder of your medications. If you develop any chest pain, shortness of breath, fevers please report back to the ER for further care. Sincerely, Meghan Torres PA-C Pending Studies at Discharge: No Stand-Alone Forms: My [facility] [employer], Smoking Cessation Medications and DC Order Prescriptions: New levofloxacin 750 mg tablet 750 mg PO DAILY Qty: 2 0RF Continued lisinopril 20 mg tablet 20 mg PO DAILY Qty: 90 3RF furosemide [Lasix] 20 mg tablet 20 mg PO DAILY PRN (Reason: edema) Qty: 90 1RF fluticasone propion-salmeterol [Advair Diskus] 250-50 mcg/dose blister with device 1 inh inhalation BID Qty: 60 5RF doxycycline hyclate 100 mg capsule 100 mg PO DAILY Qty: 30 1RF Rx Instructions: filled 07/25 for 30 day supply azelastine 137 mcg (0.1 %) spray,non-aerosol 2 spray intranasal BID Qty: 30 11RF Rx Instructions: administer into each nostril zinc acetate 50 mg (zinc) capsule 50 mg PO DAILY Rx Instructions: 07/26-OTC unable to verify selenium 200 mcg capsule 200 mcg PO DAILY Rx Instructions: 07/26-OTC unable to verify omega-3 fatty acids [Fish Oil Concentrate] 1,000 mg capsule 1,000 mg PO DAILY Rx Instructions: 07/26-OTC unable to verify ascorbic acid (vitamin C) 1,000 mg tablet 1 gm PO DAILY Rx Instructions: 07/26-OTC unable to verify cholecalciferol (vitamin D3) 5,000 unit capsule 5,000 units PO DAILY Rx Instructions: 07/26-OTC unable to verify aspirin 500 mg Tablet 500 mg PO DAILY Rx Instructions: 07/26-OTC unable to verify cyanocobalamin (vitamin B-12) [Vitamin B-12] 1,000 mcg Tablet 1,000 mcg PO DAILY Rx Instructions: 07/26-OTC unable to verify vitamin E 800 unit Capsule 800 unit PO DAILY Rx Instructions: 07/26-OTC unable to verify coQ10 (ubiquinol) 200 mg Capsule 200 mg PO DAILY Rx Instructions: 07/26-OTC unable to verify albuterol sulfate 90 mcg/actuation HFA aerosol inhaler 2 puff inhalation UD PRN (Reason: shortness of breath or wheezing) Rx Instructions: 07/26- 2 puff q6h prn. no fill history unable to verify Discharge Orders: Discharge Order (Routine); Ordered 07/27/24 Ordered By: Meghan Torres Admission Data Admit Date/Time: 07/26/24 16:12 Attending Provider: Malinda Fink Admit Provider: Mendel Leigh Primary Care Provider: Nimo Gore Other Providers: Mendel Leigh Other Interventions: Discharge Summary Assessment (RN) Last Done: 07/27/24 15:53 Hospital Stay Data Consultations 07/26/24 15:47 ED Decision to Admit Stat Diagnostic Imagining Performed 07/26/24 14:22 CT abd pelvis IV con only Stat 07/27/24 11:35 CT chest diagnostic wo/w con Routine Pending Results Patient Have Any Pending Studies at Discharge: No Discharge Instructions Given to Patient (Per Discharging Provider) Ms. Dodd, Jayy were recently hospitalized for ongoing weakness and a UTI. You underwent a workup including labs and imaging that was essentially normal. Your sarcoidosis is unchanged from 2020. Please see recommendations below regarding discharge. Please take Levofloxacin for the next two days starting 07/28. Please take with food to avoid GI upset. Please follow up with the lung doctor outpatient, we will place a new referral for you. Please follow up with your PCP within 1-2 weeks for further management. You may resume the remainder of your medications. If you develop any chest pain, shortness of breath, fevers please report back to the ER for further care. Sincerely, Meghan Torres PA-C Total Time Total Time Spent Total Time Spent (In Minutes): 50 Total Time Includes: Examination of the Patient, Discharge Planning and Medication Reconciliation Coding Level of Care Code 21689 INP/OBS DISCH >30 MIN Diagnoses UTI (urinary tract infection) N39.0 Weakness R53.1 HTN (hypertension) I10 Sarcoidosis D86.9
[2024-07-27 15:54] VITALS: BP 173/96; PULSE 84
== END 2024-07-27 17:33 | disposition home or self-care (01) | DRG 690 ==
LOC: SUATTDRO → ED 11:38 → 2N 16:12 → SUATTDRO 16:12 → INTOOBSV 16:12 → 2N 19:54